=== PATIENT | male | born 1940 | race African-American/Black ===

== ENCOUNTER 2017-10-13 11:54 | Inpatient (IN) | payer MEDICARE, MEDICAID ==
[~2017-10-13] VITALS: Ht 165.1 cm; Wt 47.6 kg
[~2017-10-13 11:54] MED LIST: ASPI-1159 PO; ATOR10TA PO; COR3 PO; FURO-152 PO; GLIP5TAB12 PO; INSU100V28; INSU100V3; LISI2.5T47 PO; LORA1TAB PO; MEGE400O23 PO; NPH,100V; PHEN100C4 PO; TAMS0.4C31 PO; XALAO BOTHEYE
[2017-10-13] MEDS ORDERED: SODIUM CHLORIDE 0.9% 1,000 ML IV ONE ×2 (12:27→16:04)
[2017-10-13] MEDS ORDERED: DEXTROSE 50% WATER 50ML SYRINGE IV ONE (12:30)
[2017-10-13 13:03] LABS: CHLORIDE 100 mEq/L (98-107)
[2017-10-13 13:04] LABS: HEMATOCRIT. 34.6 % (42.0-52.0); HEMOGLOBIN. 11.7 g/dL (14.0-18.0); MEAN CORPUSCULAR HEMOGLOBIN 27.2 pg (28.0-32.0); MEAN CORPUSCULAR VOLUME 80.5 fL (80.0-94.0); MEAN PLATELET VOLUME 7.8 fl (7.4-10.4); PLATELET 168 x1000/uL (130-400); RED CELL DISTRIBUTION WIDTH 15.5 % (11.6-14.6)
[2017-10-13 13:12] LABS: CREATINE KINASE 722 IU/L (39-308)
[2017-10-13 13:30] LABS: INR 1.1; PROTHROMBIN TIME 11.7 sec (9.4-11.6)
[2017-10-13 13:51] LABS: PLATELET ESTIMATE NORMAL
[2017-10-13 15:23] LABS: CLARITY URINE CLOUDY (CLEAR); COLOR URINE YELLOW (YELLOW); KETONES URINE NEGATIVE (NEGATIVE); LEUKOCYTE ESTERASE URINE 2+ (NEGATIVE); NITRITE URINE NEGATIVE (NEGATIVE); OCCULT BLOOD URINE 2+ (NEGATIVE); PROTEIN URINE NEGATIVE (NEGATIVE); SPECIFIC GRAVITY URINE 1.015 (1.005-1.030); UROBILINOGEN URINE 0.2 E.U./dL (0.2-1.0)
[2017-10-13] MEDS ORDERED: VANCOMYCIN 1 G PREMIX 200 ML IV SCH (15:30)
[2017-10-13] MEDS ORDERED: PIPERACILLIN/TAZ 3.375G PREMIX 50 ML IV ONE (15:30)
[2017-10-13 20:00] VITALS: BP 106/62
[2017-10-13 22:30] VITALS: BP 106/62
[2017-10-13] MEDS ORDERED: DEXT 5%/0.45% NACL 1000ML 1,000 ML IV SCH (22:58)
[2017-10-13] MEDS ORDERED: IPRATROPIUM/ALBUTEROL 0.5-3(2.5)MG/3ML NEB INH PRN (23:00)
[2017-10-13] MEDS ORDERED: MAGNESIUM/ALUMINUM HYDROXIDE/SIMETHICONE 30ML UDC PO PRN (23:00)
[2017-10-13] MEDS ORDERED: ONDANSETRON HCL 4MG/2ML VIAL IV PRN (23:00)
[2017-10-13] MEDS ORDERED: ACETAMINOPHEN 325MG TABLET PO PRN (23:00)
[2017-10-13] MEDS ORDERED: DOCUSATE SODIUM 100MG CAPSULE PO PRN (23:00)
[2017-10-13] MEDS ORDERED: CLONIDINE 0.1MG TABLET PO PRN (23:00)
[2017-10-13] MEDS ORDERED: GLIP5TAB12 PO (23:57)
[2017-10-13] MEDS ORDERED: MULT-230 PO (23:57)
[2017-10-14] VITALS: BP 110/56
[2017-10-14] MEDS ORDERED: PIPERACILLIN/TAZOBACTAM 3.375GM/50ML PREMIX IV ONE
[2017-10-14] MEDS ORDERED: MAGNESIUM HYDROXIDE 400MG/5ML 30ML UDC PO PRN
[2017-10-14] MEDS ORDERED: MOM PO (00:03)
[2017-10-14] MEDS ORDERED: PIPERACILLIN/TAZOBACTAM 2.25 G in DEXTROSE 5% WATER 50 ML IV SCH (03:00)
[2017-10-14] MEDS ORDERED: PIPERACILLIN/TAZ 3.375G PREMIX 50 ML IV SCH (03:00)
[2017-10-14] MEDS: PIPERACILLIN/TAZOBACTAM 2.25 G in DEXTROSE 5% WATER 50 ML IV SCH ×4 (03:51→21:04)
[2017-10-14 04:00] VITALS: BP 122/66
[2017-10-14] MEDS: VANCOMYCIN 1500MG in DEXTROSE 5% WATER 250ML IV SCH (04:56)
[2017-10-14] MEDS: INSULIN LISPRO 100 UNITS/ML SUBCUT SCH ×4 (06:25→21:00)
[2017-10-14] MEDS: BLOOD SUGAR DIAGNOSTIC STRIP TEST SCH ×4 (06:25→21:06)
[2017-10-14] MEDS: OMEPRAZOLE 20MG CAPSULE EXTENDED RELEASE PO SCH (06:25)
[2017-10-14 06:51] LABS: BASOPHILS % 0.3 % (0.0-2.0); EOSINOPHILS % 0.3 % (0.0-5.0); HEMATOCRIT. 31.4 % (42.0-52.0); HEMOGLOBIN. 10.8 g/dL (14.0-18.0); LYMPHOCYTES % 7.9 % (20.0-50.0); MEAN CORPUSCULAR HEMOGLOBIN 28.1 pg (28.0-32.0); MEAN PLATELET VOLUME 8.3 fl (7.4-10.4); MONOCYTES % 2.1 % (2.0-8.0); NEUTROPHILS % 89.4 % (40.0-76.0); PLATELET 127 x1000/uL (130-400); RED BLOOD CELL COUNT 3.83 mill/uL (4.7-6.1); RED CELL DISTRIBUTION WIDTH 15.7 % (11.6-14.6)
[2017-10-14 07:14] LABS: CHLORIDE 105 mEq/L (98-107)
[2017-10-14 07:23] LABS: PHOSPHORUS 2.6 mg/dL (2.5-4.9)
[2017-10-14 08:00] VITALS: BP 134/67
[2017-10-14] MEDS ORDERED: [UNRECOGNIZED DRUG - OTHER] PO SCH (09:00)
[2017-10-14] MEDS ORDERED: MULTIVITAMIN WITH MINERALS PO SCH (09:00)
[2017-10-14] MEDS: TAMSULOSIN HCL 0.4MG SR CAPSULE PO SCH (10:31)
[2017-10-14] MEDS: LISINOPRIL 2.5MG TABLET PO SCH (10:31)
[2017-10-14] MEDS: MULTIVITAMINS,THER W-MINERALS TABLET PO SCH (10:32)
[2017-10-14] MEDS: CARVEDILOL 3.125 MG TABLET PO SCH ×2 (10:33→21:05)
[2017-10-14] MEDS: ASPIRIN 325MG EC TABLET PO SCH (10:33)
[2017-10-14] MEDS: MEGESTROL ACETATE 400 MG/10 ML UDC PO SCH ×2 (10:34→18:03)
[2017-10-14] MEDS: ENOXAPARIN 30MG/0.3ML SYR SUBCUT SCH (10:35)
[2017-10-14 12:00] VITALS: BP 107/62
[2017-10-14] MEDS: LEVETIRACETAM 500MG PREMIX 100 ML IV SCH (13:17)
[2017-10-14 13:21] LABS: AMMONIA < 10 uMol/L (<32)
[2017-10-14 13:36] LABS: T4 FREE 0.91 ng/dL (0.76-1.46)
[2017-10-14 15:22] LABS: FOLIC ACID (FOLATE) SERUM 9.2 ng/mL (>5.38)
[2017-10-14 16:00] VITALS: BP 96/55
[2017-10-14] MEDS: DEXTROSE 50% WATER 50ML SYRINGE IV PRN (17:58)
[2017-10-14 20:00] VITALS: BP 121/76
[2017-10-14] MEDS: ATORVASTATIN CALCIUM 40MG TABLET PO SCH (21:05)
[2017-10-14] MEDS: LATANOPROST 0.005% OPHTH DROPS 2.5ML BOTHEYE SCH (21:07)
[2017-10-15] VITALS: BP 126/71
[2017-10-15] MEDS: LEVETIRACETAM 500MG PREMIX 100 ML IV SCH ×2 (01:24→12:58)
[2017-10-15] MEDS: PIPERACILLIN/TAZOBACTAM 2.25 G in DEXTROSE 5% WATER 50 ML IV SCH ×4 (03:01→21:38)
[2017-10-15 04:00] VITALS: BP 121/83
[2017-10-15] MEDS: VANCOMYCIN 1500MG in DEXTROSE 5% WATER 250ML IV SCH (05:15)
[2017-10-15] MEDS: BLOOD SUGAR DIAGNOSTIC STRIP TEST SCH ×4 (06:02→21:02)
[2017-10-15] MEDS: OMEPRAZOLE 20MG CAPSULE EXTENDED RELEASE PO SCH (06:02)
[2017-10-15] MEDS: INSULIN LISPRO 100 UNITS/ML SUBCUT SCH ×4 (06:02→21:00)
[2017-10-15 06:43] LABS: BASOPHILS % 0.2 % (0.0-2.0); EOSINOPHILS % 0.2 % (0.0-5.0); HEMATOCRIT. 33.5 % (42.0-52.0); HEMOGLOBIN. 11.5 g/dL (14.0-18.0); LYMPHOCYTES % 7.3 % (20.0-50.0); MEAN CORPUSCULAR HEMOGLOBIN 27.8 pg (28.0-32.0); MONOCYTES % 2.7 % (2.0-8.0); NEUTROPHILS % 89.6 % (40.0-76.0); PLATELET 128 x1000/uL (130-400); RED BLOOD CELL COUNT 4.14 mill/uL (4.7-6.1); RED CELL DISTRIBUTION WIDTH 15.4 % (11.6-14.6)
[2017-10-15 08:00] VITALS: BP 112/86
[2017-10-15 08:17] LABS: CHLORIDE 103 mEq/L (98-107)
[2017-10-15] MEDS: MEGESTROL ACETATE 400 MG/10 ML UDC PO SCH ×2 (09:14→17:01)
[2017-10-15] MEDS: CARVEDILOL 3.125 MG TABLET PO SCH ×2 (09:15→20:50)
[2017-10-15] MEDS: MULTIVITAMINS,THER W-MINERALS TABLET PO SCH (09:15)
[2017-10-15] MEDS: TAMSULOSIN HCL 0.4MG SR CAPSULE PO SCH (09:15)
[2017-10-15] MEDS: ASPIRIN 325MG EC TABLET PO SCH (09:15)
[2017-10-15] MEDS: LISINOPRIL 2.5MG TABLET PO SCH (09:16)
[2017-10-15] MEDS: ENOXAPARIN 30MG/0.3ML SYR SUBCUT SCH (09:16)
[2017-10-15 12:00] VITALS: BP 97/58
[2017-10-15 16:00] VITALS: BP 117/69
[2017-10-15 20:00] VITALS: BP 124/78
[2017-10-15] MEDS: ATORVASTATIN CALCIUM 40MG TABLET PO SCH (20:50)
[2017-10-15] MEDS: LATANOPROST 0.005% OPHTH DROPS 2.5ML BOTHEYE SCH (20:50)
[2017-10-15 22:59] LABS: HEPATITIS B SURFACE ANTIGEN NEGATIVE
[2017-10-15 23:28] LABS: HEPATITIS B CORE AB IGM NEGATIVE
[2017-10-15 23:29] LABS: HEPATITIS A AB IGM NEGATIVE (NEGATIVE)
[2017-10-16] VITALS: BP 121/74
[2017-10-16] MEDS: LEVETIRACETAM 500MG PREMIX 100 ML IV SCH ×2 (01:53→12:48)
[2017-10-16] MEDS: PIPERACILLIN/TAZOBACTAM 2.25 G in DEXTROSE 5% WATER 50 ML IV SCH ×2 (03:21→09:58)
[2017-10-16 04:00] VITALS: BP 121/61
[2017-10-16] MEDS ORDERED: VANCOMYCIN 750 MG PREMIX 150 ML IV SCH (05:00)
[2017-10-16 06:06] LABS: BASOPHILS % 0.1 % (0.0-2.0); EOSINOPHILS % 0.2 % (0.0-5.0); HEMATOCRIT. 31.8 % (42.0-52.0); HEMOGLOBIN. 10.9 g/dL (14.0-18.0); LYMPHOCYTES % 8.6 % (20.0-50.0); MEAN CORPUSCULAR VOLUME 81.6 fL (80.0-94.0); MEAN PLATELET VOLUME 8.2 fl (7.4-10.4); NEUTROPHILS % 88.1 % (40.0-76.0); PLATELET 126 x1000/uL (130-400); RED BLOOD CELL COUNT 3.89 mill/uL (4.7-6.1); RED CELL DISTRIBUTION WIDTH 15.4 % (11.6-14.6)
[2017-10-16] MEDS: OMEPRAZOLE 20MG CAPSULE EXTENDED RELEASE PO SCH (06:35)
[2017-10-16] MEDS: DEXTROSE 50% WATER 50ML SYRINGE IV PRN (07:03)
[2017-10-16] MEDS: BLOOD SUGAR DIAGNOSTIC STRIP TEST SCH ×4 (07:10→21:00)
[2017-10-16] MEDS: INSULIN LISPRO 100 UNITS/ML SUBCUT SCH ×2 (07:11→11:56)
[2017-10-16 07:25] LABS: CHLORIDE 104 mEq/L (98-107)
[2017-10-16 08:00] VITALS: BP 124/76
[2017-10-16] MEDS: ENOXAPARIN 30MG/0.3ML SYR SUBCUT SCH (09:58)
[2017-10-16] MEDS: LISINOPRIL 2.5MG TABLET PO SCH (09:59)
[2017-10-16] MEDS: CARVEDILOL 3.125 MG TABLET PO SCH ×2 (09:59→21:28)
[2017-10-16] MEDS: MULTIVITAMINS,THER W-MINERALS TABLET PO SCH (09:59)
[2017-10-16] MEDS: MEGESTROL ACETATE 400 MG/10 ML UDC PO SCH ×2 (09:59→18:02)
[2017-10-16] MEDS: ASPIRIN 325MG EC TABLET PO SCH (09:59)
[2017-10-16] MEDS: TAMSULOSIN HCL 0.4MG SR CAPSULE PO SCH (10:00)
[2017-10-16 12:00] VITALS: BP 120/70
[2017-10-16 16:00] VITALS: BP 95/53
[2017-10-16] MEDS ORDERED: LEVOFLOXACIN 500MG PREMIX 100 ML IV SCH (16:00)
[2017-10-16 20:00] VITALS: BP 116/64
[2017-10-16] MEDS: ATORVASTATIN CALCIUM 40MG TABLET PO SCH (21:28)
[2017-10-16] MEDS: LATANOPROST 0.005% OPHTH DROPS 2.5ML BOTHEYE SCH (22:06)
[2017-10-16] MEDS: LEVOFLOXACIN 500MG PREMIX 100 ML IV SCH (22:08)
[2017-10-17] VITALS: BP 101/70
[2017-10-17] MEDS: LEVETIRACETAM 500MG PREMIX 100 ML IV SCH ×2 (01:55→13:53)
[2017-10-17 04:00] VITALS: BP 119/68
[2017-10-17] MEDS: FAMOTIDINE 20MG TABLET PO SCH (05:11)
[2017-10-17] MEDS: BLOOD SUGAR DIAGNOSTIC STRIP TEST SCH ×4 (05:17→20:20)
[2017-10-17 06:12] LABS: HEMATOCRIT. 29.9 % (42.0-52.0); HEMOGLOBIN. 10.3 g/dL (14.0-18.0); MEAN CORPUSCULAR HEMOGLOBIN 28.1 pg (28.0-32.0); MEAN CORPUSCULAR VOLUME 81.6 fL (80.0-94.0); MEAN PLATELET VOLUME 7.9 fl (7.4-10.4); PLATELET 133 x1000/uL (130-400); RED BLOOD CELL COUNT 3.66 mill/uL (4.7-6.1); RED CELL DISTRIBUTION WIDTH 15.4 % (11.6-14.6)
[2017-10-17 08:00] VITALS: BP 137/73
[2017-10-17] MEDS: MULTIVITAMINS,THER W-MINERALS TABLET PO SCH (09:05)
[2017-10-17] MEDS: ASPIRIN 325MG EC TABLET PO SCH (09:05)
[2017-10-17] MEDS: LISINOPRIL 2.5MG TABLET PO SCH (09:05)
[2017-10-17] MEDS: CARVEDILOL 3.125 MG TABLET PO SCH ×2 (09:06→20:19)
[2017-10-17] MEDS: TAMSULOSIN HCL 0.4MG SR CAPSULE PO SCH (09:06)
[2017-10-17] MEDS: MEGESTROL ACETATE 400 MG/10 ML UDC PO SCH ×2 (09:06→17:27)
[2017-10-17] MEDS: ENOXAPARIN 30MG/0.3ML SYR SUBCUT SCH (09:07)
[2017-10-17 12:00] VITALS: BP 116/64
[2017-10-17 13:28] LABS: PLATELET ESTIMATE NORMAL
[2017-10-17] MEDS ORDERED: LACTULOSE 20G/30ML UDC PO NR (14:30)
[2017-10-17 16:00] VITALS: BP 111/62
[2017-10-17 20:00] VITALS: BP 130/74
[2017-10-17] MEDS: ATORVASTATIN CALCIUM 40MG TABLET PO SCH (20:18)
[2017-10-17] MEDS: LATANOPROST 0.005% OPHTH DROPS 2.5ML BOTHEYE SCH (20:19)
[2017-10-17] MEDS: LEVOFLOXACIN 500MG PREMIX 100 ML IV SCH (20:19)
[2017-10-18] VITALS: BP 128/77
[2017-10-18 04:00] VITALS: BP 128/77
[2017-10-18] MEDS: BLOOD SUGAR DIAGNOSTIC STRIP TEST SCH ×2 (05:57→11:45)
[2017-10-18] MEDS: FAMOTIDINE 20MG TABLET PO SCH (05:57)
[2017-10-18 07:15] VITALS: BP 154/95
[2017-10-18] MEDS: MEGESTROL ACETATE 400 MG/10 ML UDC PO SCH (09:29)
[2017-10-18] MEDS: ASPIRIN 325MG EC TABLET PO SCH (09:29)
[2017-10-18] MEDS: MULTIVITAMINS,THER W-MINERALS TABLET PO SCH (09:29)
[2017-10-18] MEDS: TAMSULOSIN HCL 0.4MG SR CAPSULE PO SCH (09:30)
[2017-10-18] MEDS: CARVEDILOL 3.125 MG TABLET PO SCH (09:31)
[2017-10-18] MEDS: ENOXAPARIN 30MG/0.3ML SYR SUBCUT SCH (09:32)
[2017-10-18] MEDS: LISINOPRIL 2.5MG TABLET PO SCH (09:32)
[2017-10-18 11:40] VITALS: BP 121/66
[2017-10-18] MEDS: LEVETIRACETAM 500MG PREMIX 100 ML IV SCH ×2 (14:04)
[2017-10-18 14:19] VITALS: BP 121/66
[2017-10-18 15:45] VITALS: BP 104/82
[2017-10-18] MEDS ORDERED: LEVOFLOXACIN 250MG PREMIX 50 ML IV SCH (20:00)
== END 2017-10-18 16:50 | DRG 871 ==
LOC: ER 12:05 → 5WST 15:38 → EDBEDREQSVC 15:41 → EDBEDREQTM 15:41 → EDBEDREQ 15:41 → ENRESERV 19:25
PROVIDERS: ADMIT Family Medicine Adult Medicine; ATTEND Family Medicine Adult Medicine
DX: A41.9 Sepsis, unspecified organism (principal); G92 Toxic encephalopathy; N17.9 Acute kidney failure, unspecified; L89.150 Pressure ulcer of sacral region, unstageable; D69.6 Thrombocytopenia, unspecified; E11.22 Type 2 diabetes mellitus with diabetic chronic kidney disease; E44.1 Mild protein-calorie malnutrition; I69.354 Hemiplegia and hemiparesis following cerebral infarction affecting left non-dominant side; N39.0 Urinary tract infection, site not specified; Z68.1 Body mass index [BMI] 19.9 or less, adult; N18.9 Chronic kidney disease, unspecified; B96.5 Pseudomonas (aeruginosa) (mallei) (pseudomallei) as the cause of diseases classified elsewhere; D64.9 Anemia, unspecified; E78.00 Pure hypercholesterolemia, unspecified; E78.5 Hyperlipidemia, unspecified; F03.90 Unspecified dementia, unspecified severity, without behavioral disturbance, psychotic disturbance, mood disturbance, and anxiety; G40.909 Epilepsy, unspecified, not intractable, without status epilepticus; I12.9 Hypertensive chronic kidney disease with stage 1 through stage 4 chronic kidney disease, or unspecified chronic kidney disease; J44.9 Chronic obstructive pulmonary disease, unspecified; M48.02 Spinal stenosis, cervical region; Z85.46 Personal history of malignant neoplasm of prostate; Z90.79 Acquired absence of other genital organ(s); Z98.1 Arthrodesis status; Z79.82 Long term (current) use of aspirin; Z79.4 Long term (current) use of insulin; Z79.899 Other long term (current) drug therapy; Z90.49 Acquired absence of other specified parts of digestive tract
CPT/HCPCS: 36415; 51702; 70450; 70551; 71045; 80048; 80053; 80076; 80202; 81003; 82140; 82550; 82607; 82746; 82962; 83036; 83605; 83735; 83880; 84100; 84439; 84443; 84481; 84484; 85025; 85610; 86705; 86709; 86803; 86850; 86900; 87040; 87077; 87086; 87186; 87340; 92610; 93005; 93970; 96361; 96365; 96375; 99285; J1650; J1815; J1953; J1956; J2543; J3370; J3490; J7030; J7040; J7050; J7060; A4315

== ENCOUNTER 2017-10-19 19:03 | Inpatient (IN) | payer MEDICARE, MEDICAID ==
[~2017-10-19] VITALS: Ht 167.6 cm; Wt 49.2 kg
[~2017-10-19 19:03] MED LIST changes: -INSU100V28; -INSU100V3; +MOM PO; +MULT-230 PO; -NPH,100V; -PHEN100C4 PO
[2017-10-19] MEDS ORDERED: SODIUM CHLORIDE 0.9% 1,000 ML IV ONE (19:39)
[2017-10-19 20:31] LABS: BASOPHILS % 0.5 % (0.0-2.0); EOSINOPHILS % 2.5 % (0.0-5.0); HEMATOCRIT. 26.2 % (42.0-52.0); LYMPHOCYTES % 15.6 % (20.0-50.0); MEAN CORPUSCULAR HEMOGLOBIN 27.7 pg (28.0-32.0); MEAN CORPUSCULAR VOLUME 80.8 fL (80.0-94.0); MEAN PLATELET VOLUME 6.9 fl (7.4-10.4); MONOCYTES % 4.5 % (2.0-8.0); NEUTROPHILS % 76.9 % (40.0-76.0); PLATELET 180 x1000/uL (130-400); RED BLOOD CELL COUNT 3.25 mill/uL (4.7-6.1); RED CELL DISTRIBUTION WIDTH 15.3 % (11.6-14.6)
[2017-10-19 20:35] LABS: CHLORIDE 108 mEq/L (98-107)
[2017-10-19 20:36] LABS: PROTHROMBIN TIME 10.8 sec (9.4-11.6)
[2017-10-19 21:34] LABS: KETONES URINE 1+ (NEGATIVE); LEUKOCYTE ESTERASE URINE 3+ (NEGATIVE); NITRITE URINE POSITIVE (NEGATIVE); OCCULT BLOOD URINE 3+ (NEGATIVE); PROTEIN URINE 2+ (NEGATIVE); SPECIFIC GRAVITY URINE 1.011 (1.005-1.030); UROBILINOGEN URINE 0.2 E.U./dL (0.2-1.0)
[2017-10-19 21:39] LABS: CLARITY URINE BLOODY (CLEAR); COLOR URINE RED (YELLOW)
[2017-10-19] MEDS ORDERED: CEFTRIAXONE 2 G PREMIX 50 ML IV NR (22:30)
[2017-10-19] MEDS ORDERED: HYDROCODONE/ACETAMINOPHEN 5/325MG TABLET PO PRN (23:15)
[2017-10-19] MEDS ORDERED: LORAZEPAM 0.5MG TABLET PO PRN (23:15)
[2017-10-19] MEDS ORDERED: ONDANSETRON HCL 4MG/2ML VIAL IV PRN (23:15)
[2017-10-19] MEDS ORDERED: DIPHENHYDRAMINE 50MG/ML VIAL IV PRN (23:15)
[2017-10-19] MEDS ORDERED: ACETAMINOPHEN 325MG TABLET PO PRN (23:15)
[2017-10-19] MEDS ORDERED: IPRATROPIUM/ALBUTEROL 0.5-3(2.5)MG/3ML NEB INH PRN (23:15)
[2017-10-19] MEDS ORDERED: DOCUSATE SODIUM 100MG CAPSULE PO PRN (23:15)
[2017-10-19] MEDS ORDERED: GUAIFENESIN 200MG/10ML SUGAR FREE UDC PO PRN (23:15)
[2017-10-19] MEDS ORDERED: HYDROCODONE/ACETAMINOPHEN 10/325MG TABLET PO PRN (23:15)
[2017-10-20] VITALS (7 sets, daily range): BP systolic 102–161; BP diastolic 62–82
[2017-10-20] MEDS ORDERED: AZITHROMYCIN 500 MG in DEXT 5% WATER 250 ML IV SCH ×2
[2017-10-20] MEDS: DEXT 5%/0.45% NACL 1000ML 1,000 ML IV SCH ×2 (01:15→18:09)
[2017-10-20 07:09] LABS: BASOPHILS % 0.3 % (0.0-2.0); HEMATOCRIT. 26.7 % (42.0-52.0); HEMOGLOBIN. 9.3 g/dL (14.0-18.0); LYMPHOCYTES % 13.1 % (20.0-50.0); MEAN CORPUSCULAR VOLUME 80.1 fL (80.0-94.0); MEAN PLATELET VOLUME 7.2 fl (7.4-10.4); MONOCYTES % 3.7 % (2.0-8.0); NEUTROPHILS % 81.9 % (40.0-76.0); PLATELET 178 x1000/uL (130-400); RED BLOOD CELL COUNT 3.33 mill/uL (4.7-6.1); RED CELL DISTRIBUTION WIDTH 15.4 % (11.6-14.6)
[2017-10-20 07:48] LABS: CHLORIDE 108 mEq/L (98-107)
[2017-10-20 07:59] LABS: PHOSPHORUS 2.8 mg/dL (2.5-4.9)
[2017-10-20] MEDS: CLONIDINE 0.1MG TABLET PO PRN (09:21)
[2017-10-20] MEDS ORDERED: CEFTRIAXONE 1 G PREMIX 50 ML IV SCH (10:00)
[2017-10-20] MEDS ORDERED: LEVOFLOXACIN 500MG PREMIX 100 ML IV NR (18:00)
[2017-10-20] MEDS: METRONIDAZOLE 500 MG PREMIX 100 ML IV SCH (22:48)
[2017-10-21] VITALS: BP 170/100
[2017-10-21] MEDS: CEFTRIAXONE 1 G PREMIX 50 ML IV SCH ×2 (00:04→23:00)
[2017-10-21 04:00] VITALS: BP 163/87
[2017-10-21] MEDS: METRONIDAZOLE 500 MG PREMIX 100 ML IV SCH ×3 (06:18→21:05)
[2017-10-21 06:42] LABS: BASOPHILS % 0.2 % (0.0-2.0); EOSINOPHILS % 0.4 % (0.0-5.0); HEMATOCRIT. 30.3 % (42.0-52.0); HEMOGLOBIN. 10.2 g/dL (14.0-18.0); LYMPHOCYTES % 9.1 % (20.0-50.0); MEAN CORPUSCULAR HEMOGLOBIN 27.2 pg (28.0-32.0); MEAN CORPUSCULAR VOLUME 80.6 fL (80.0-94.0); MEAN PLATELET VOLUME 6.9 fl (7.4-10.4); MONOCYTES % 3.3 % (2.0-8.0); PLATELET 231 x1000/uL (130-400); RED BLOOD CELL COUNT 3.75 mill/uL (4.7-6.1); RED CELL DISTRIBUTION WIDTH 14.9 % (11.6-14.6)
[2017-10-21 08:00] VITALS: BP 158/96
[2017-10-21 08:02] LABS: CHLORIDE 107 mEq/L (98-107)
[2017-10-21] MEDS: CLONIDINE 0.1MG TABLET PO PRN (09:22)
[2017-10-21 12:00] VITALS: BP 166/64
[2017-10-21] MEDS ORDERED: FUROSEMIDE 40MG/4ML VIAL IVP NR (15:30)
[2017-10-21] MEDS: TAMSULOSIN HCL 0.4MG SR CAPSULE PO SCH (15:56)
[2017-10-21] MEDS: LISINOPRIL 2.5MG TABLET PO SCH (15:56)
[2017-10-21 16:00] VITALS: BP 138/78
[2017-10-21] MEDS ORDERED: MAGNESIUM 1 G PREMIX 100 ML IV NR (17:00)
[2017-10-21] MEDS: MULTIVITAMINS,THER W-MINERALS TABLET PO SCH (17:23)
[2017-10-21] MEDS: CARVEDILOL 3.125 MG TABLET PO SCH (17:24)
[2017-10-21 20:00] VITALS: BP 185/87
[2017-10-21] MEDS ORDERED: ATORVASTATIN CALCIUM 10MG TABLET PO SCH (21:00)
[2017-10-21] MEDS: LATANOPROST 0.005% OPHTH DROPS 2.5ML BOTHEYE SCH (21:05)
[2017-10-22] VITALS: BP 116/83
[2017-10-22 04:00] VITALS: BP 121/79
[2017-10-22] MEDS: METRONIDAZOLE 500 MG PREMIX 100 ML IV SCH (07:12)
[2017-10-22 07:38] LABS: HEMATOCRIT. 26.5 % (42.0-52.0); HEMOGLOBIN. 9.2 g/dL (14.0-18.0); MEAN CORPUSCULAR HEMOGLOBIN 27.6 pg (28.0-32.0); MEAN CORPUSCULAR VOLUME 79.5 fL (80.0-94.0); PLATELET 236 x1000/uL (130-400); RED BLOOD CELL COUNT 3.33 mill/uL (4.7-6.1); RED CELL DISTRIBUTION WIDTH 15.1 % (11.6-14.6)
[2017-10-22 08:00] VITALS: BP 95/61
[2017-10-22] MEDS: LISINOPRIL 2.5MG TABLET PO SCH (08:27)
[2017-10-22] MEDS: CARVEDILOL 3.125 MG TABLET PO SCH ×2 (08:27→21:07)
[2017-10-22] MEDS: TAMSULOSIN HCL 0.4MG SR CAPSULE PO SCH (08:28)
[2017-10-22 08:29] LABS: CHLORIDE 106 mEq/L (98-107)
[2017-10-22] MEDS: FUROSEMIDE 20MG TABLET PO SCH (08:39)
[2017-10-22] MEDS: MULTIVITAMINS,THER W-MINERALS TABLET PO SCH (09:03)
[2017-10-22 10:17] LABS: PLATELET ESTIMATE NORMAL
[2017-10-22 12:00] VITALS: BP 96/68
[2017-10-22] MEDS: METRONIDAZOLE 500MG TABLET PO SCH ×2 (15:50→21:07)
[2017-10-22 16:00] VITALS: BP 152/107
[2017-10-22 20:00] VITALS: BP 133/72
[2017-10-22] MEDS: ATORVASTATIN CALCIUM 40MG TABLET PO SCH (21:07)
[2017-10-22] MEDS: LATANOPROST 0.005% OPHTH DROPS 2.5ML BOTHEYE SCH (21:11)
[2017-10-22] MEDS: CEFTRIAXONE 1 G PREMIX 50 ML IV SCH (22:02)
[2017-10-23] VITALS: BP 142/82
[2017-10-23 04:00] VITALS: BP 117/84
[2017-10-23] MEDS: METRONIDAZOLE 500MG TABLET PO SCH ×3 (05:37→21:34)
[2017-10-23 07:30] LABS: BASOPHILS % 0.2 % (0.0-2.0); EOSINOPHILS % 0.2 % (0.0-5.0); HEMATOCRIT. 24.4 % (42.0-52.0); HEMOGLOBIN. 8.5 g/dL (14.0-18.0); LYMPHOCYTES % 7.9 % (20.0-50.0); MEAN CORPUSCULAR HEMOGLOBIN 27.6 pg (28.0-32.0); MEAN CORPUSCULAR VOLUME 79.3 fL (80.0-94.0); MONOCYTES % 2.8 % (2.0-8.0); NEUTROPHILS % 88.9 % (40.0-76.0); PLATELET 245 x1000/uL (130-400); RED BLOOD CELL COUNT 3.08 mill/uL (4.7-6.1); RED CELL DISTRIBUTION WIDTH 15.3 % (11.6-14.6)
[2017-10-23 07:31] LABS: CHLORIDE 108 mEq/L (98-107)
[2017-10-23 08:00] VITALS: BP 136/73
[2017-10-23] MEDS: MULTIVITAMINS,THER W-MINERALS TABLET PO SCH (09:22)
[2017-10-23] MEDS: FUROSEMIDE 20MG TABLET PO SCH (09:22)
[2017-10-23] MEDS: TAMSULOSIN HCL 0.4MG SR CAPSULE PO SCH (09:22)
[2017-10-23] MEDS: LISINOPRIL 2.5MG TABLET PO SCH (09:22)
[2017-10-23] MEDS: CARVEDILOL 3.125 MG TABLET PO SCH ×2 (09:23→21:35)
[2017-10-23 12:00] VITALS: BP 147/80
[2017-10-23 16:00] VITALS: BP 118/76
[2017-10-23 20:00] VITALS: BP 147/73
[2017-10-23] MEDS: ATORVASTATIN CALCIUM 40MG TABLET PO SCH (21:34)
[2017-10-23] MEDS: LATANOPROST 0.005% OPHTH DROPS 2.5ML BOTHEYE SCH (21:35)
[2017-10-23] MEDS: CEFTRIAXONE 1 G PREMIX 50 ML IV SCH (22:19)
[2017-10-24] VITALS (8 sets, daily range): BP systolic 111–170; BP diastolic 54–83
[2017-10-24] MEDS: METRONIDAZOLE 500MG TABLET PO SCH ×3 (05:57→21:38)
[2017-10-24 06:56] LABS: BASOPHILS % 0.6 % (0.0-2.0); EOSINOPHILS % 1.2 % (0.0-5.0); HEMATOCRIT. 26.2 % (42.0-52.0); HEMOGLOBIN. 9.1 g/dL (14.0-18.0); LYMPHOCYTES % 17.1 % (20.0-50.0); MEAN CORPUSCULAR HEMOGLOBIN 27.4 pg (28.0-32.0); MEAN CORPUSCULAR VOLUME 78.9 fL (80.0-94.0); MONOCYTES % 4.4 % (2.0-8.0); NEUTROPHILS % 76.7 % (40.0-76.0); PLATELET 304 x1000/uL (130-400); RED BLOOD CELL COUNT 3.32 mill/uL (4.7-6.1); RED CELL DISTRIBUTION WIDTH 15.2 % (11.6-14.6)
[2017-10-24 07:38] LABS: CHLORIDE 106 mEq/L (98-107)
[2017-10-24] MEDS: MULTIVITAMINS,THER W-MINERALS TABLET PO SCH (08:03)
[2017-10-24] MEDS: CARVEDILOL 3.125 MG TABLET PO SCH ×2 (08:03→21:39)
[2017-10-24] MEDS: FUROSEMIDE 20MG TABLET PO SCH (08:03)
[2017-10-24] MEDS: LISINOPRIL 2.5MG TABLET PO SCH (08:03)
[2017-10-24] MEDS: TAMSULOSIN HCL 0.4MG SR CAPSULE PO SCH (08:04)
[2017-10-24] MEDS: ATORVASTATIN CALCIUM 40MG TABLET PO SCH (21:39)
[2017-10-24] MEDS: LATANOPROST 0.005% OPHTH DROPS 2.5ML BOTHEYE SCH (21:39)
[2017-10-24] MEDS: CEFTRIAXONE 1 G PREMIX 50 ML IV SCH (23:49)
[2017-10-25] VITALS: BP 158/85
[2017-10-25 04:00] VITALS: BP 143/87
[2017-10-25] MEDS: METRONIDAZOLE 500MG TABLET PO SCH ×2 (05:05→13:48)
[2017-10-25 08:00] VITALS: BP 155/84
[2017-10-25] MEDS: FUROSEMIDE 20MG TABLET PO SCH (09:29)
[2017-10-25] MEDS: TAMSULOSIN HCL 0.4MG SR CAPSULE PO SCH (09:29)
[2017-10-25] MEDS: MULTIVITAMINS,THER W-MINERALS TABLET PO SCH (09:29)
[2017-10-25] MEDS: LISINOPRIL 2.5MG TABLET PO SCH (09:30)
[2017-10-25] MEDS: CARVEDILOL 3.125 MG TABLET PO SCH (10:12)
[2017-10-25 12:00] VITALS: BP 150/83
== END 2017-10-25 15:52 | DRG 853 ==
LOC: ER 20:59 → 5WST 22:54 → EDBEDREQ 22:54 → EDBEDREQSVC 22:54 → EDBEDREQTM 22:54 → ENRESERV 23:35
PROVIDERS: ADMIT Family Medicine Adult Medicine; ATTEND Family Medicine Adult Medicine
PROC: 0JB70ZZ Excision of Back Subcutaneous Tissue and Fascia, Open Approach (ICD-10-PCS; principal; 2017-10-20)
DX: A41.9 Sepsis, unspecified organism (principal); J96.00 Acute respiratory failure, unspecified whether with hypoxia or hypercapnia; E43 Unspecified severe protein-calorie malnutrition; L89.153 Pressure ulcer of sacral region, stage 3; I13.0 Hypertensive heart and chronic kidney disease with heart failure and stage 1 through stage 4 chronic kidney disease, or unspecified chronic kidney disease; J18.1 Lobar pneumonia, unspecified organism; E11.22 Type 2 diabetes mellitus with diabetic chronic kidney disease; I50.9 Heart failure, unspecified; J44.0 Chronic obstructive pulmonary disease with (acute) lower respiratory infection; R18.8 Other ascites; N39.0 Urinary tract infection, site not specified; Z68.1 Body mass index [BMI] 19.9 or less, adult; S37.30XA Unspecified injury of urethra, initial encounter; D72.819 Decreased white blood cell count, unspecified; E78.5 Hyperlipidemia, unspecified; K56.41 Fecal impaction; N32.89 Other specified disorders of bladder; D64.9 Anemia, unspecified; R74.0 Nonspecific elevation of levels of transaminase and lactic acid dehydrogenase [LDH]; N18.9 Chronic kidney disease, unspecified; F03.90 Unspecified dementia, unspecified severity, without behavioral disturbance, psychotic disturbance, mood disturbance, and anxiety; G40.909 Epilepsy, unspecified, not intractable, without status epilepticus; R31.0 Gross hematuria; X58.XXXA Exposure to other specified factors, initial encounter; Y93.89 Activity, other specified; Y92.89 Other specified places as the place of occurrence of the external cause; Y99.8 Other external cause status; Z85.46 Personal history of malignant neoplasm of prostate; Z90.79 Acquired absence of other genital organ(s); Z86.73 Personal history of transient ischemic attack (TIA), and cerebral infarction without residual deficits; Z95.0 Presence of cardiac pacemaker; Z79.899 Other long term (current) drug therapy; Z79.82 Long term (current) use of aspirin; Z98.1 Arthrodesis status; Z87.440 Personal history of urinary (tract) infections
CPT/HCPCS: 36415; 51702; 71045; 74176; 80048; 80053; 81003; 82962; 83605; 83735; 84100; 84145; 84443; 85025; 85610; 87040; 87086; 93005; 96374; 99285; C1893; J0696; J1940; J1956; J3475; J3490; J7030; J7040; J7050; A4315

== ENCOUNTER 2018-01-26 14:29 | Inpatient (IN) | payer MEDICARE, MEDICAID ==
[~2018-01-26] VITALS: Ht 172.7 cm; Wt 47.6 kg
[2018-01-26] MEDS ORDERED: SODIUM CHLORIDE 0.9% 1000ML BAG (SEPSIS BOLUS) IV ONE (15:00)
[2018-01-26 16:07] LABS: CHLORIDE 117 mEq/L (98-107)
[2018-01-26 16:08] LABS: HEMATOCRIT. 40.5 % (42.0-52.0); INR 1.1; MEAN CORPUSCULAR HEMOGLOBIN 27.6 pg (28.0-32.0); MEAN CORPUSCULAR VOLUME 85.9 fL (80.0-94.0); MEAN PLATELET VOLUME 9.5 fl (7.4-10.4); PLATELET 155 x1000/uL (130-400); PROTHROMBIN TIME 10.9 sec (9.1-11.1); RED BLOOD CELL COUNT 4.71 mill/uL (4.7-6.1); RED CELL DISTRIBUTION WIDTH 15.5 % (11.6-14.6)
[2018-01-26 16:26] LABS: PLATELET ESTIMATE NORMAL
[2018-01-26] MEDS ORDERED: INSULIN REGULAR (DRIP) 100 UNITS in SODIUM CHLORIDE 0.9% 100 ML IV ONE ×2 (17:42→18:00)
[2018-01-26 18:17] LABS: PHOSPHORUS 4.2 mg/dL (2.5-4.9)
[2018-01-26] MEDS ORDERED: SODIUM CHL 0.45% + KCL 20MEQ/L 1,000 ML IV SCH ×2 (20:45)
[2018-01-26 21:00] LABS: CLARITY URINE CLOUDY (CLEAR); COLOR URINE YELLOW (YELLOW); KETONES URINE NEGATIVE (NEGATIVE); LEUKOCYTE ESTERASE URINE 2+ (NEGATIVE); NITRITE URINE NEGATIVE (NEGATIVE); OCCULT BLOOD URINE 3+ (NEGATIVE); PROTEIN URINE NEGATIVE (NEGATIVE); SPECIFIC GRAVITY URINE 1.023 (1.005-1.030); UROBILINOGEN URINE 0.2 E.U./dL (0.2-1.0)
[2018-01-26] MEDS ORDERED: ONDANSETRON HCL 4MG/2ML VIAL IV PRN (23:15)
[2018-01-26 23:24] VITALS: BP 104/77
[2018-01-26] MEDS ORDERED: BLOOD SUGAR DIAGNOSTIC STRIP TEST SCH (23:30)
[2018-01-26] MEDS ORDERED: DEXTROSE 50% WATER 50ML SYRINGE IV PRN ×2 (23:30)
[2018-01-26 23:39] VITALS: BP 104/77
[2018-01-27] VITALS (41 sets, daily range): BP systolic 84–147; BP diastolic 52–87
[2018-01-27 00:12] LABS: BASOPHILS % 0.3 % (0.0-2.0); HEMATOCRIT. 37.5 % (42.0-52.0); LYMPHOCYTES % 10.9 % (20.0-50.0); MEAN CORPUSCULAR HEMOGLOBIN 27.5 pg (28.0-32.0); MEAN CORPUSCULAR VOLUME 85.5 fL (80.0-94.0); MEAN PLATELET VOLUME 9.3 fl (7.4-10.4); MONOCYTES % 2.1 % (2.0-8.0); NEUTROPHILS % 85.7 % (40.0-76.0); PLATELET 138 x1000/uL (130-400); RED BLOOD CELL COUNT 4.39 mill/uL (4.7-6.1); RED CELL DISTRIBUTION WIDTH 15.2 % (11.6-14.6)
[2018-01-27] MEDS ORDERED: LISI2.5T47 MT (00:58)
[2018-01-27] MEDS ORDERED: MEGE40TA27 GT (00:58)
[2018-01-27] MEDS ORDERED: GLIP5TAB12 MT (00:58)
[2018-01-27] MEDS ORDERED: LORA-250 MT (00:58)
[2018-01-27] MEDS ORDERED: ATOR80TA MT (00:58)
[2018-01-27] MEDS ORDERED: FURO-152 PO (00:58)
[2018-01-27] MEDS ORDERED: ASPI-1159 PO (00:58)
[2018-01-27] MEDS ORDERED: TAMS-11 PO (00:58)
[2018-01-27] MEDS ORDERED: MULT-379 MT (00:58)
[2018-01-27] MEDS ORDERED: MOM MT (00:58)
[2018-01-27] MEDS ORDERED: XALAO EACHEYE (00:58)
[2018-01-27] MEDS ORDERED: COR3 PO (00:58)
[2018-01-27] MEDS ORDERED: SODIUM CHL 0.9% + KCL 20MEQ/L 1,000 ML IV SCH (01:00)
[2018-01-27] MEDS: INSULIN REGULAR (DRIP) 100 UNITS in SODIUM CHLORIDE 0.9% 100 ML IV SCH ×2 (01:02→05:57)
[2018-01-27] MEDS: BLOOD SUGAR DIAGNOSTIC STRIP TEST SCH ×8 (03:00→21:00)
[2018-01-27] MEDS ORDERED: DEXTROSE 50% WATER 50ML SYRINGE IV PRN (06:45)
[2018-01-27] MEDS: INSULIN LISPRO 100 UNITS/ML SUBCUT SCH ×4 (07:45→22:27)
[2018-01-27] MEDS ORDERED: DEXT 5%/0.45% NACL KCL 20MEQ/L 1,000 ML IV SCH (08:00)
[2018-01-27] MEDS: PANTOPRAZOLE SODIUM 40 MG/VIAL IV SCH (08:37)
[2018-01-27] MEDS ORDERED: POTASSIUM CHLORIDE INJ 40 MEQ in DEXT 5% WATER 250 ML IV NR (09:00)
[2018-01-27] MEDS ORDERED: DEXTROSE 5% WATER 1,000 ML IV SCH (09:00)
[2018-01-27] MEDS ORDERED: ENOXAPARIN 30MG/0.3ML SYR SUBCUT SCH (09:30)
[2018-01-27] MEDS: CEFTRIAXONE 1 G PREMIX 50 ML IV SCH (09:49)
[2018-01-27] MEDS ORDERED: SODIUM CHLORIDE 0.45% 500 ML IV ONE (10:30)
[2018-01-27 10:40] LABS: AMMONIA 21 uMol/L (<32)
[2018-01-27] MEDS ORDERED: LEVETIRACETAM 500MG PREMIX 100 ML IV SCH (10:45)
[2018-01-27] MEDS ORDERED: POTASSIUM CHLORIDE INJ 30 MEQ in DEXT 5%/0.2% NACL 1,000 ML IV SCH (11:00)
[2018-01-27 11:25] LABS: PHOSPHORUS 1.7 mg/dL (2.5-4.9)
[2018-01-27] MEDS: LEVETIRACETAM 500MG in SODIUM CHLORIDE 0.9% 100ML IV SCH (12:07)
[2018-01-27] MEDS ORDERED: SODIUM PHOS,M-BASIC-D-BASIC 30 MM in DEXT 5% WATER 500 ML IV NR (16:00)
[2018-01-27] MEDS ORDERED: LATANOPROST 0.005% OPHTH DROPS 2.5ML BOTHEYE SCH (21:00)
[2018-01-27] MEDS: TAMSULOSIN HCL 0.4MG SR CAPSULE PO SCH (22:25)
[2018-01-27] MEDS: LATANOPROST 0.005% OPHTH DROPS 2.5ML BOTHEYE SCH (22:26)
[2018-01-27] MEDS: ATORVASTATIN CALCIUM 40MG TABLET PO SCH (22:26)
[2018-01-27] MEDS ORDERED: POTASSIUM CHLORIDE INJ 20 MEQ in DEXT 5%/0.2% NACL 1,000 ML IV SCH (23:30)
[2018-01-28] VITALS (41 sets, daily range): BP systolic 117–168; BP diastolic 70–110
[2018-01-28] MEDS: LEVETIRACETAM 500MG in SODIUM CHLORIDE 0.9% 100ML IV SCH ×2 (01:24→12:24)
[2018-01-28 06:09] LABS: BASOPHILS % 0.1 % (0.0-2.0); EOSINOPHILS % 0.3 % (0.0-5.0); HEMATOCRIT. 31.3 % (42.0-52.0); HEMOGLOBIN. 10.2 g/dL (14.0-18.0); LYMPHOCYTES % 11.2 % (20.0-50.0); MEAN CORPUSCULAR HEMOGLOBIN 27.4 pg (28.0-32.0); MEAN CORPUSCULAR VOLUME 84.6 fL (80.0-94.0); MEAN PLATELET VOLUME 8.8 fl (7.4-10.4); MONOCYTES % 2.6 % (2.0-8.0); NEUTROPHILS % 85.8 % (40.0-76.0); PLATELET 81 x1000/uL (130-400); RED CELL DISTRIBUTION WIDTH 14.6 % (11.6-14.6)
[2018-01-28] MEDS: BLOOD SUGAR DIAGNOSTIC STRIP TEST SCH ×4 (06:53→21:18)
[2018-01-28] MEDS: INSULIN LISPRO 100 UNITS/ML SUBCUT SCH ×4 (07:06→21:27)
[2018-01-28 07:47] LABS: PHOSPHORUS 8.2 mg/dL (2.5-4.9)
[2018-01-28] MEDS: PANTOPRAZOLE SODIUM 40 MG/VIAL IV SCH (09:43)
[2018-01-28] MEDS: CEFTRIAXONE 1 G PREMIX 50 ML IV SCH (09:43)
[2018-01-28] MEDS: POTASSIUM CHLORIDE INJ 10 MEQ in DEXT 5%/0.2% NACL 1,000 ML IV SCH ×2 (11:31→20:48)
[2018-01-28] MEDS: INSULIN GLARGINE UD 100 UNITS/ML SYR SUBCUT SCH (11:38)
[2018-01-28] MEDS: LATANOPROST 0.005% OPHTH DROPS 2.5ML BOTHEYE SCH (20:53)
[2018-01-28] MEDS: TAMSULOSIN HCL 0.4MG SR CAPSULE PO SCH (20:54)
[2018-01-28] MEDS: ATORVASTATIN CALCIUM 40MG TABLET PO SCH (20:54)
[2018-01-29] VITALS (26 sets, daily range): BP systolic 110–176; BP diastolic 64–107
[2018-01-29] MEDS: LEVETIRACETAM 500MG in SODIUM CHLORIDE 0.9% 100ML IV SCH ×2 (00:05→11:29)
[2018-01-29 05:39] LABS: BASOPHILS % 0.1 % (0.0-2.0); EOSINOPHILS % 1.3 % (0.0-5.0); HEMATOCRIT. 28.5 % (42.0-52.0); HEMOGLOBIN. 9.6 g/dL (14.0-18.0); LYMPHOCYTES % 14.9 % (20.0-50.0); MEAN CORPUSCULAR HEMOGLOBIN 27.9 pg (28.0-32.0); MEAN CORPUSCULAR VOLUME 83.1 fL (80.0-94.0); MEAN PLATELET VOLUME 8.9 fl (7.4-10.4); MONOCYTES % 3.5 % (2.0-8.0); NEUTROPHILS % 80.2 % (40.0-76.0); PLATELET 70 x1000/uL (130-400); RED BLOOD CELL COUNT 3.43 mill/uL (4.7-6.1); RED CELL DISTRIBUTION WIDTH 14.6 % (11.6-14.6)
[2018-01-29 05:47] LABS: CHLORIDE 119 mEq/L (98-107)
[2018-01-29 05:53] LABS: PHOSPHORUS 3.9 mg/dL (2.5-4.9)
[2018-01-29] MEDS: BLOOD SUGAR DIAGNOSTIC STRIP TEST SCH ×4 (06:54→21:00)
[2018-01-29] MEDS: INSULIN LISPRO 100 UNITS/ML SUBCUT SCH ×4 (06:54→21:00)
[2018-01-29] MEDS: POTASSIUM CHLORIDE INJ 10 MEQ in DEXT 5%/0.2% NACL 1,000 ML IV SCH ×2 (07:43→16:30)
[2018-01-29] MEDS: CEFTRIAXONE 1 G PREMIX 50 ML IV SCH (09:23)
[2018-01-29] MEDS: PANTOPRAZOLE SODIUM 40 MG/VIAL IV SCH (09:23)
[2018-01-29] MEDS: INSULIN GLARGINE UD 100 UNITS/ML SYR SUBCUT SCH (09:23)
[2018-01-29] MEDS ORDERED: POTASSIUM CHLORIDE 20MEQ/PACKET PO SCH (10:30)
[2018-01-29] MEDS ORDERED: LOSARTAN POTASSIUM 25 MG TABLET PO SCH (10:30)
[2018-01-29] MEDS: FERROUS SULFATE 325MG TABLET PO SCH (13:40)
[2018-01-29] MEDS: MULTIVITAMINS,THER W-MINERALS TABLET PO SCH (13:40)
[2018-01-29] MEDS: ZINC SULFATE 220 MG ( 50 ) CAPSULE PO SCH (13:40)
[2018-01-29] MEDS: ASCORBIC ACID 500 MG TABLET PO SCH (17:36)
[2018-01-29] MEDS: ATORVASTATIN CALCIUM 40MG TABLET PO SCH (20:54)
[2018-01-29] MEDS: LATANOPROST 0.005% OPHTH DROPS 2.5ML BOTHEYE SCH (20:54)
[2018-01-29] MEDS: TAMSULOSIN HCL 0.4MG SR CAPSULE PO SCH (20:55)
[2018-01-30] VITALS (22 sets, daily range): BP systolic 124–162; BP diastolic 61–107
[2018-01-30] MEDS: LEVETIRACETAM 500MG in SODIUM CHLORIDE 0.9% 100ML IV SCH ×2 (00:26→12:29)
[2018-01-30 05:48] LABS: BASOPHILS % 0.3 % (0.0-2.0); EOSINOPHILS % 1.2 % (0.0-5.0); HEMATOCRIT. 29.2 % (42.0-52.0); HEMOGLOBIN. 9.9 g/dL (14.0-18.0); LYMPHOCYTES % 21.5 % (20.0-50.0); MEAN CORPUSCULAR HEMOGLOBIN 27.6 pg (28.0-32.0); MEAN CORPUSCULAR VOLUME 81.9 fL (80.0-94.0); MEAN PLATELET VOLUME 9.9 fl (7.4-10.4); MONOCYTES % 2.1 % (2.0-8.0); NEUTROPHILS % 74.9 % (40.0-76.0); PLATELET 64 x1000/uL (130-400); RED BLOOD CELL COUNT 3.57 mill/uL (4.7-6.1); RED CELL DISTRIBUTION WIDTH 14.2 % (11.6-14.6)
[2018-01-30] MEDS: BLOOD SUGAR DIAGNOSTIC STRIP TEST SCH ×4 (06:15→21:25)
[2018-01-30] MEDS: POTASSIUM CHLORIDE INJ 10 MEQ in DEXT 5%/0.2% NACL 1,000 ML IV SCH ×2 (06:15→15:26)
[2018-01-30] MEDS: INSULIN LISPRO 100 UNITS/ML SUBCUT SCH ×4 (06:15→21:00)
[2018-01-30 06:17] LABS: CHLORIDE 112 mEq/L (98-107)
[2018-01-30] MEDS: ZINC SULFATE 220 MG ( 50 ) CAPSULE PO SCH (09:17)
[2018-01-30] MEDS: LOSARTAN POTASSIUM 50 MG TABLET PO SCH (09:17)
[2018-01-30] MEDS: FERROUS SULFATE 325MG TABLET PO SCH (09:18)
[2018-01-30] MEDS: ASCORBIC ACID 500 MG TABLET PO SCH ×2 (09:18→18:01)
[2018-01-30] MEDS: MULTIVITAMINS,THER W-MINERALS TABLET PO SCH (09:18)
[2018-01-30] MEDS: CEFTRIAXONE 1 G PREMIX 50 ML IV SCH (09:20)
[2018-01-30] MEDS: PANTOPRAZOLE SODIUM 40 MG/VIAL IV SCH (09:20)
[2018-01-30] MEDS ORDERED: SODIUM PHOS,M-BASIC-D-BASIC 20 MM in DEXT 5% WATER 243.3333 ML IV NR (10:30)
[2018-01-30] MEDS: INSULIN GLARGINE UD 100 UNITS/ML SYR SUBCUT SCH (11:15)
[2018-01-30] MEDS: LATANOPROST 0.005% OPHTH DROPS 2.5ML BOTHEYE SCH (21:25)
[2018-01-30] MEDS: ATORVASTATIN CALCIUM 40MG TABLET PO SCH (21:25)
[2018-01-30] MEDS: TAMSULOSIN HCL 0.4MG SR CAPSULE PO SCH (21:25)
[2018-01-31] VITALS: BP 163/77
[2018-01-31] MEDS: LEVETIRACETAM 500MG in SODIUM CHLORIDE 0.9% 100ML IV SCH ×2 (00:18→12:29)
[2018-01-31 04:00] VITALS: BP 145/79
[2018-01-31 06:34] LABS: CHLORIDE 111 mEq/L (98-107)
[2018-01-31] MEDS: BLOOD SUGAR DIAGNOSTIC STRIP TEST SCH ×2 (06:43→12:40)
[2018-01-31 06:46] LABS: PHOSPHORUS 2.2 mg/dL (2.5-4.9)
[2018-01-31 06:47] LABS: BASOPHILS % 0.2 % (0.0-2.0); EOSINOPHILS % 1.1 % (0.0-5.0); HEMATOCRIT. 31.6 % (42.0-52.0); HEMOGLOBIN. 10.6 g/dL (14.0-18.0); LYMPHOCYTES % 18.4 % (20.0-50.0); MEAN CORPUSCULAR HEMOGLOBIN 27.4 pg (28.0-32.0); MEAN CORPUSCULAR VOLUME 81.7 fL (80.0-94.0); MEAN PLATELET VOLUME 8.7 fl (7.4-10.4); MONOCYTES % 2.5 % (2.0-8.0); NEUTROPHILS % 77.8 % (40.0-76.0); PLATELET 55 x1000/uL (130-400); RED BLOOD CELL COUNT 3.87 mill/uL (4.7-6.1); RED CELL DISTRIBUTION WIDTH 14.6 % (11.6-14.6)
[2018-01-31] MEDS: INSULIN LISPRO 100 UNITS/ML SUBCUT SCH ×2 (07:41→13:10)
[2018-01-31 08:00] VITALS: BP 160/78
[2018-01-31] MEDS ORDERED: POTASSIUM PHOS,M-BASIC-D-BASIC 20 MMOL in DEXT 5% WATER 243.3333 ML IV NR (10:00)
[2018-01-31] MEDS ORDERED: INSULIN GLARGINE UD 100 UNITS/ML SYR SUBCUT SCH (10:00)
[2018-01-31] MEDS: ASCORBIC ACID 500 MG TABLET PO SCH (11:36)
[2018-01-31] MEDS: LOSARTAN POTASSIUM 50 MG TABLET PO SCH (11:36)
[2018-01-31] MEDS: FERROUS SULFATE 325MG TABLET PO SCH (11:37)
[2018-01-31] MEDS: PANTOPRAZOLE SODIUM 40 MG/VIAL IV SCH (11:37)
[2018-01-31] MEDS: MULTIVITAMINS,THER W-MINERALS TABLET PO SCH (11:37)
[2018-01-31 12:00] VITALS: BP 147/81
[2018-01-31] MEDS ORDERED: ZINC SULFATE 220 MG ( 50 ) CAPSULE PO SCH (12:00)
[2018-01-31] MEDS: POTASSIUM CHLORIDE INJ 10 MEQ in DEXT 5%/0.2% NACL 1,000 ML IV SCH (12:29)
[2018-01-31 16:00] VITALS: BP 138/88
[2018-01-31 17:18] VITALS: BP 138/88
== END 2018-01-31 17:38 | DRG 682 ==
LOC: ER 14:29 → ENRESERV 15:23 → CANRESERV 15:23 → CVICU 17:46 → EDBEDREQSVC 18:00 → EDBEDREQ 18:00 → ENRESERV 20:29 → 7WST 01-30 22:57
PROVIDERS: ADMIT Internal Medicine; ATTEND Internal Medicine
DX: N17.9 Acute kidney failure, unspecified (principal); E11.01 Type 2 diabetes mellitus with hyperosmolarity with coma; G93.41 Metabolic encephalopathy; E43 Unspecified severe protein-calorie malnutrition; N39.0 Urinary tract infection, site not specified; E87.0 Hyperosmolality and hypernatremia; Z68.1 Body mass index [BMI] 19.9 or less, adult; I69.351 Hemiplegia and hemiparesis following cerebral infarction affecting right dominant side; D69.6 Thrombocytopenia, unspecified; E86.0 Dehydration; R31.0 Gross hematuria; R62.7 Adult failure to thrive; F03.90 Unspecified dementia, unspecified severity, without behavioral disturbance, psychotic disturbance, mood disturbance, and anxiety; N18.9 Chronic kidney disease, unspecified; I12.9 Hypertensive chronic kidney disease with stage 1 through stage 4 chronic kidney disease, or unspecified chronic kidney disease; G40.909 Epilepsy, unspecified, not intractable, without status epilepticus; I95.9 Hypotension, unspecified; E87.6 Hypokalemia; E83.39 Other disorders of phosphorus metabolism; G93.89 Other specified disorders of brain; B96.1 Klebsiella pneumoniae [K. pneumoniae] as the cause of diseases classified elsewhere; E11.22 Type 2 diabetes mellitus with diabetic chronic kidney disease; K56.41 Fecal impaction; L89.150 Pressure ulcer of sacral region, unstageable; N40.1 Benign prostatic hyperplasia with lower urinary tract symptoms; E11.65 Type 2 diabetes mellitus with hyperglycemia; L89.159 Pressure ulcer of sacral region, unspecified stage; E11.51 Type 2 diabetes mellitus with diabetic peripheral angiopathy without gangrene; E87.8 Other disorders of electrolyte and fluid balance, not elsewhere classified; H40.9 Unspecified glaucoma; I25.10 Atherosclerotic heart disease of native coronary artery without angina pectoris; J44.9 Chronic obstructive pulmonary disease, unspecified; Z79.4 Long term (current) use of insulin; Z90.49 Acquired absence of other specified parts of digestive tract; Z90.79 Acquired absence of other genital organ(s); Z95.1 Presence of aortocoronary bypass graft; Z95.2 Presence of prosthetic heart valve; Z98.1 Arthrodesis status; Z79.82 Long term (current) use of aspirin; Z79.899 Other long term (current) drug therapy
CPT/HCPCS: 36415; 70450; 71045; 80048; 80053; 81003; 82140; 82962; 83605; 83735; 84100; 84134; 85025; 85610; 87040; 87077; 87086; 87186; 92610; 93005; 93970; 96360; 96361; 97162; 99291; A6261; C9113; J0696; J1650; J1815; J1953; J3480; J3490; J7030; J7040; J7050; J7060; J7070; A4315

== ENCOUNTER 2018-03-17 12:19 | Inpatient (IN) | payer MEDICARE, MEDICAID ==
[2018-03-17] VITALS (38 sets, daily range): BP systolic 48–155; BP diastolic 29–117
[~2018-03-17] VITALS: Ht 170.2 cm; Wt 56.7 kg
[2018-03-17] MEDS ORDERED: DOPAMINE 400MG PREMIX 250 ML IV ONE ×2 (12:41→16:15)
[2018-03-17] MEDS ORDERED: METRONIDAZOLE 500 MG PREMIX 100 ML IV ONE (13:15)
[2018-03-17] MEDS ORDERED: PIPERACILLIN/TAZ 3.375G PREMIX 50 ML IV ONE (13:15)
[2018-03-17] MEDS ORDERED: SODIUM CHLORIDE 0.9% 1000ML BAG (SEPSIS BOLUS) IV ONE (13:15)
[2018-03-17] MEDS ORDERED: VANCOMYCIN 1 G PREMIX 200 ML IV ONE (13:15)
[2018-03-17] MEDS ORDERED: NOREPINEPHRINE 4 MG in DEXT 5% WATER 246 ML IV ONE ×6 (13:15→16:30)
[2018-03-17 13:47] LABS: BG BASE EXCESS -10.3 mmol/L (-2.0-2.0); BG CARBOXYHEMOGLOBIN 0.4 % (0.5-1.5); BG DEOXYHEMOGLOBIN 0.2 % (0.0-5.0); BG FRACTION INSPIRED OXYGEN 100; BG HCO3 ACT 12.9 mmol/L (22.0-26.0); BG METHEMOGLOBIN 0.1 % (0.0-1.5); BG OXYGEN SATURATION 99.8 % (92.0-98.5); BG OXYHEMOGLOBIN 99.3 % (94.0-97.0); BG PH 7.406 (7.350-7.450); BG PO2 520.1 mmHg (75.0-100.0); BG SAMPLE SITE LEFT BRACHIAL; BG TIDAL VOLUME(mL) 500 mL; BG TOTAL HEMOGLOBIN 8.8 g/dL (12.0-18.0); BG VENT MODE VENT - A/C; BG VENT RATE 16 set
[2018-03-17] MEDS ORDERED: SUCCINYLCHOLINE CHLORIDE 200MG/10ML IV ONE (13:59)
[2018-03-17] MEDS ORDERED: ETOMIDATE 2MG/ML 10ML VIAL IV ONE (13:59)
[2018-03-17 14:00] LABS: HEMATOCRIT. 27.3 % (42.0-52.0); HEMOGLOBIN. 9.3 g/dL (14.0-18.0); MEAN CORPUSCULAR HEMOGLOBIN 26.7 pg (28.0-32.0); MEAN CORPUSCULAR VOLUME 78.7 fL (80.0-94.0); MEAN PLATELET VOLUME 7.1 fl (7.4-10.4); PLATELET 342 x1000/uL (130-400); RED BLOOD CELL COUNT 3.47 mill/uL (4.7-6.1); RED CELL DISTRIBUTION WIDTH 15.4 % (11.6-14.6)
[2018-03-17 14:06] LABS: CHLORIDE 112 mEq/L (98-107)
[2018-03-17 14:07] LABS: INR 1.2; PARTIAL THROMBOPLASTIN TIME 28.9 sec (23.4-31.0)
[2018-03-17 14:18] LABS: PLATELET ESTIMATE NORMAL
[2018-03-17] MEDS ORDERED: PROPOFOL 10MG/ML 100ML 100 ML IV PRN (16:15)
[2018-03-17] MEDS ORDERED: NOREPINEPHRINE 16 MG in DEXT 5% WATER 234 ML IV PRN ×2 (16:15→17:30)
[2018-03-17] MEDS ORDERED: ACETAMINOPHEN 650MG SUPP PR PRN (17:30)
[2018-03-17] MEDS ORDERED: GUAIFENESIN 200MG/10ML SUGAR FREE UDC PO PRN (17:30)
[2018-03-17] MEDS ORDERED: PHENYLEPHRINE 40 MG in DEXT 5% WATER 246 ML IV PRN (17:30)
[2018-03-17] MEDS ORDERED: DOCUSATE SODIUM 100MG CAPSULE PO PRN (17:30)
[2018-03-17] MEDS ORDERED: ONDANSETRON HCL 4MG/2ML INJ IV PRN (17:30)
[2018-03-17] MEDS ORDERED: DIPHENHYDRAMINE 50MG/ML VIAL IV PRN (17:30)
[2018-03-17] MEDS ORDERED: MAGNESIUM/ALUMINUM HYDROXIDE/SIMETHICONE 30ML UDC PO PRN (17:30)
[2018-03-17] MEDS ORDERED: NOREPINEPHRINE 4 MG in DEXT 5% WATER 246 ML IV PRN (17:30)
[2018-03-17] MEDS ORDERED: VANCOMYCIN 1 G PREMIX 200 ML IV SCH (17:30)
[2018-03-17] MEDS ORDERED: HYDROCODONE/ACETAMINOPHEN 5/325MG TABLET PO PRN (17:30)
[2018-03-17] MEDS ORDERED: NA PHOS,M-B/NA PHOS,DI-BA ENEMA 118ML PR PRN (17:30)
[2018-03-17] MEDS ORDERED: IPRATROPIUM/ALBUTEROL 0.5-3(2.5)MG/3ML NEB INH PRN (17:30)
[2018-03-17] MEDS ORDERED: ACETAMINOPHEN 325MG TABLET PO PRN (17:30)
[2018-03-17] MEDS ORDERED: PIPERACILLIN/TAZ 3.375G PREMIX 50 ML IV SCH (17:30)
[2018-03-17 17:34] LABS: CLARITY URINE TURBID (CLEAR); COLOR URINE YELLOW (YELLOW); KETONES URINE NEGATIVE (NEGATIVE); LEUKOCYTE ESTERASE URINE 3+ (NEGATIVE); NITRITE URINE NEGATIVE (NEGATIVE); OCCULT BLOOD URINE 3+ (NEGATIVE); PH URINE 6.5 (4.5-8.0); PROTEIN URINE 3+ (NEGATIVE); SPECIFIC GRAVITY URINE 1.014 (1.005-1.030)
[2018-03-17] MEDS: LEVETIRACETAM 500 MG in SODIUM CHLORIDE 0.9% 100 ML IV SCH (18:28)
[2018-03-17] MEDS: SODIUM CHLORIDE 0.45% 1,000 ML IV SCH (18:29)
[2018-03-17] MEDS: PANTOPRAZOLE SODIUM 40 MG/VIAL IV SCH (18:29)
[2018-03-17] MEDS: ENOXAPARIN 40MG/0.4ML SYR SUBCUT SCH (18:29)
[2018-03-17] MEDS: NOREPINEPHRINE 16 MG in DEXT 5% WATER 234 ML IV PRN (18:31)
[2018-03-17] MEDS: INSULIN LISPRO 100 UNITS/ML SUBCUT SCH ×2 (19:39→21:09)
[2018-03-17] MEDS: IPRATROPIUM/ALBUTEROL 0.5-3(2.5)MG/3ML NEB INH SCH (20:05)
[2018-03-17] MEDS ORDERED: PHENYLEPHRINE 80 MG in DEXT 5% WATER 492 ML IV PRN (20:34)
[2018-03-17] MEDS: BLOOD SUGAR DIAGNOSTIC STRIP TEST SCH (21:09)
[2018-03-17] MEDS: SODIUM CHLORIDE 0.9% INJ 3ML FLUSH IVF SCH (21:09)
[2018-03-17] MEDS: PIPERACILLIN/TAZ 3.375G PREMIX 50 ML IV SCH (21:09)
[2018-03-17] MEDS: PHENYLEPHRINE 80 MG in DEXT 5% WATER 492 ML IV PRN (23:22)
[2018-03-18] VITALS (98 sets, daily range): BP systolic 70–164; BP diastolic 29–113
[2018-03-18 01:03] LABS: CREATINE KINASE MB FRACTION 8.3 ng/mL (0.5-3.6)
[2018-03-18] MEDS: NOREPINEPHRINE 16 MG in DEXT 5% WATER 234 ML IV PRN ×2 (04:00→13:07)
[2018-03-18] MEDS: IPRATROPIUM/ALBUTEROL 0.5-3(2.5)MG/3ML NEB INH SCH ×4 (04:49→20:30)
[2018-03-18] MEDS: SODIUM CHLORIDE 0.9% INJ 3ML FLUSH IVF SCH ×3 (05:42→22:18)
[2018-03-18] MEDS: PIPERACILLIN/TAZ 3.375G PREMIX 50 ML IV SCH ×3 (05:42→22:42)
[2018-03-18] MEDS: BLOOD SUGAR DIAGNOSTIC STRIP TEST SCH ×4 (05:42→20:24)
[2018-03-18] MEDS: INSULIN LISPRO 100 UNITS/ML SUBCUT SCH ×4 (05:46→20:24)
[2018-03-18] MEDS: SODIUM CHLORIDE 0.45% 1,000 ML IV SCH (05:59)
[2018-03-18] MEDS: VANCOMYCIN 750 MG PREMIX 150 ML IV SCH ×2 (06:06→23:44)
[2018-03-18 06:08] LABS: HEMATOCRIT. 28.5 % (42.0-52.0); HEMOGLOBIN. 9.4 g/dL (14.0-18.0); MEAN CORPUSCULAR HEMOGLOBIN 25.9 pg (28.0-32.0); MEAN CORPUSCULAR VOLUME 78.7 fL (80.0-94.0); MEAN PLATELET VOLUME 7.7 fl (7.4-10.4); PLATELET 379 x1000/uL (130-400); RED BLOOD CELL COUNT 3.62 mill/uL (4.7-6.1); RED CELL DISTRIBUTION WIDTH 15.4 % (11.6-14.6)
[2018-03-18 06:25] LABS: CHLORIDE 106 mEq/L (98-107)
[2018-03-18 06:37] LABS: LDL CHOLESTEROL 40 mg/dL (5-100)
[2018-03-18 06:38] LABS: CREATINE KINASE 104 IU/L (39-308)
[2018-03-18 06:39] LABS: HDL CHOLESTEROL 32 mg/dL (40-59)
[2018-03-18 06:41] LABS: CREATINE KINASE MB FRACTION 7.4 ng/mL (0.5-3.6)
[2018-03-18 08:00] LABS: BG BASE EXCESS -10.5 mmol/L (-2.0-2.0); BG CARBOXYHEMOGLOBIN 0.3 % (0.5-1.5); BG DEOXYHEMOGLOBIN 0.6 % (0.0-5.0); BG FRACTION INSPIRED OXYGEN 60; BG HCO3 ACT 12.9 mmol/L (22.0-26.0); BG METHEMOGLOBIN 0.1 % (0.0-1.5); BG OXYGEN SATURATION 99.4 % (92.0-98.5); BG PCO2 22.1 mmHg (35.0-45.0); BG PH 7.384 (7.350-7.450); BG PO2 285.8 mmHg (75.0-100.0); BG SAMPLE SITE RIGHT RADIAL; BG TIDAL VOLUME(mL) 500 mL; BG VENT MODE VENT - A/C; BG VENT RATE 16 set
[2018-03-18] MEDS: LEVETIRACETAM 500 MG in SODIUM CHLORIDE 0.9% 100 ML IV SCH ×2 (08:33→20:52)
[2018-03-18] MEDS ORDERED: POTASSIUM CHLORIDE 20MEQ TABLET SR PO PRN (08:45)
[2018-03-18] MEDS: POTASSIUM CHLORIDE 20MEQ/PACKET NG PRN (09:19)
[2018-03-18] MEDS: PHENYLEPHRINE 80 MG in DEXT 5% WATER 492 ML IV PRN ×2 (09:59→19:46)
[2018-03-18] MEDS: SODIUM CHLORIDE 0.9% 1,000 ML IV SCH ×2 (10:16→23:40)
[2018-03-18 11:05] LABS: T4 FREE 1.35 ng/dL (0.76-1.46)
[2018-03-18] MEDS ORDERED: PROPOFOL 10MG/ML 100ML 100 ML IV PRN (11:15)
[2018-03-18 13:20] LABS: AMMONIA 14 uMol/L (<32)
[2018-03-18 13:48] LABS: PLATELET ESTIMATE NORMAL
[2018-03-18 13:56] LABS: CREATINE KINASE MB FRACTION 6.5 ng/mL (0.5-3.6)
[2018-03-18 15:34] LABS: BG BASE EXCESS -11.5 mmol/L (-2.0-2.0); BG CARBOXYHEMOGLOBIN 0.3 % (0.5-1.5); BG DEOXYHEMOGLOBIN 1.1 % (0.0-5.0); BG FRACTION INSPIRED OXYGEN 40; BG HCO3 ACT 12.1 mmol/L (22.0-26.0); BG OXYGEN SATURATION 98.9 % (92.0-98.5); BG OXYHEMOGLOBIN 98.6 % (94.0-97.0); BG PH 7.379 (7.350-7.450); BG PO2 178.2 mmHg (75.0-100.0); BG SAMPLE SITE RIGHT BRACHIAL; BG TIDAL VOLUME(mL) 500 mL; BG VENT MODE VENT - A/C; BG VENT RATE 16 set
[2018-03-18] MEDS: VANCOMYCIN HCL 1000 MG/20 ML ORAL PO SCH ×2 (18:00→23:44)
[2018-03-18] MEDS: PANTOPRAZOLE SODIUM 40 MG/VIAL IV SCH (18:26)
[2018-03-18] MEDS: ENOXAPARIN 40MG/0.4ML SYR SUBCUT SCH (18:26)
[2018-03-19] VITALS (96 sets, daily range): BP systolic 67–162; BP diastolic 48–93
[2018-03-19 00:34] LABS: CREATINE KINASE MB FRACTION 5.3 ng/mL (0.5-3.6)
[2018-03-19] MEDS: IPRATROPIUM/ALBUTEROL 0.5-3(2.5)MG/3ML NEB INH SCH ×4 (01:40→20:06)
[2018-03-19] MEDS: INSULIN LISPRO 100 UNITS/ML SUBCUT SCH ×4 (05:34→21:00)
[2018-03-19] MEDS: BLOOD SUGAR DIAGNOSTIC STRIP TEST SCH ×4 (05:34→21:32)
[2018-03-19] MEDS: SODIUM CHLORIDE 0.9% INJ 3ML FLUSH IVF SCH ×3 (05:35→21:48)
[2018-03-19] MEDS: PIPERACILLIN/TAZ 3.375G PREMIX 50 ML IV SCH ×3 (05:35→21:32)
[2018-03-19] MEDS: NOREPINEPHRINE 16 MG in DEXT 5% WATER 234 ML IV PRN (05:36)
[2018-03-19] MEDS: VANCOMYCIN HCL 1000 MG/20 ML ORAL PO SCH ×4 (05:36→23:44)
[2018-03-19 05:42] LABS: CREATINE KINASE MB FRACTION 4.5 ng/mL (0.5-3.6)
[2018-03-19 07:11] LABS: *AMPHETAMINES SCREEN URINE NEGATIVE (NEGATIVE); *BARBITURATES SCREEN URINE NEGATIVE (NEGATIVE); *BENZODIAZEPINES SCREEN URINE NEGATIVE (NEGATIVE); *COCAINE SCREEN URINE NEGATIVE (NEGATIVE); METHADONE URINE SCREEN NEGATIVE (NEGATIVE)
[2018-03-19 07:12] LABS: CANNABINOID URINE SCREEN NEGATIVE (NEGATIVE); OPIATES URINE SCREEN NEGATIVE (NEGATIVE); PHENCYCLIDINE URINE SCREEN NEGATIVE (NEGATIVE)
[2018-03-19 08:25] LABS: BG BASE EXCESS -9.7 mmol/L (-2.0-2.0); BG CARBOXYHEMOGLOBIN 0.5 % (0.5-1.5); BG DEOXYHEMOGLOBIN 0.7 % (0.0-5.0); BG FRACTION INSPIRED OXYGEN 40; BG HCO3 ACT 14.1 mmol/L (22.0-26.0); BG METHEMOGLOBIN 0.3 % (0.0-1.5); BG OXYGEN SATURATION 99.3 % (92.0-98.5); BG OXYHEMOGLOBIN 98.5 % (94.0-97.0); BG PCO2 24.3 mmHg (35.0-45.0); BG PH 7.383 (7.350-7.450); BG PO2 192.7 mmHg (75.0-100.0); BG SAMPLE SITE RIGHT RADIAL; BG TIDAL VOLUME(mL) 500 mL; BG TOTAL HEMOGLOBIN 8.2 g/dL (12.0-18.0); BG VENT MODE VENT - A/C; BG VENT RATE 16 set
[2018-03-19] MEDS: LEVETIRACETAM 500 MG in SODIUM CHLORIDE 0.9% 100 ML IV SCH ×2 (09:58→21:32)
[2018-03-19] MEDS: ASPIRIN 81MG TABLET PO SCH (09:58)
[2018-03-19] MEDS: VANCOMYCIN 750 MG PREMIX 150 ML IV SCH ×2 (13:00→23:44)
[2018-03-19] MEDS: SODIUM CHLORIDE 0.9% 1,000 ML IV SCH (14:36)
[2018-03-19] MEDS: PHENYLEPHRINE 80 MG in DEXT 5% WATER 492 ML IV PRN (16:52)
[2018-03-19] MEDS: PANTOPRAZOLE SODIUM 40 MG/VIAL IV SCH (17:26)
[2018-03-19] MEDS: ENOXAPARIN 40MG/0.4ML SYR SUBCUT SCH (17:27)
[2018-03-20] VITALS (98 sets, daily range): BP systolic 86–153; BP diastolic 57–115
[2018-03-20] MEDS: SODIUM CHLORIDE 0.9% 1,000 ML IV SCH ×2 (01:38→10:48)
[2018-03-20] MEDS: IPRATROPIUM/ALBUTEROL 0.5-3(2.5)MG/3ML NEB INH SCH ×4 (02:01→20:40)
[2018-03-20] MEDS: PIPERACILLIN/TAZ 3.375G PREMIX 50 ML IV SCH ×3 (05:25→21:38)
[2018-03-20] MEDS: SODIUM CHLORIDE 0.9% INJ 3ML FLUSH IVF SCH ×3 (05:26→21:36)
[2018-03-20] MEDS: VANCOMYCIN HCL 1000 MG/20 ML ORAL PO SCH ×4 (05:26→23:23)
[2018-03-20] MEDS: BLOOD SUGAR DIAGNOSTIC STRIP TEST SCH ×4 (05:53→20:40)
[2018-03-20 06:28] LABS: HEMATOCRIT. 22.1 % (42.0-52.0); HEMOGLOBIN. 7.5 g/dL (14.0-18.0); MEAN CORPUSCULAR HEMOGLOBIN 26.4 pg (28.0-32.0); MEAN CORPUSCULAR VOLUME 77.4 fL (80.0-94.0); MEAN PLATELET VOLUME 7.4 fl (7.4-10.4); PLATELET 233 x1000/uL (130-400); RED BLOOD CELL COUNT 2.85 mill/uL (4.7-6.1); RED CELL DISTRIBUTION WIDTH 15.4 % (11.6-14.6)
[2018-03-20 06:45] LABS: CHLORIDE 117 mEq/L (98-107)
[2018-03-20] MEDS: INSULIN LISPRO 100 UNITS/ML SUBCUT SCH ×4 (07:00→20:40)
[2018-03-20] MEDS: POTASSIUM CHLORIDE 20MEQ/PACKET NG PRN (08:19)
[2018-03-20] MEDS: PHENYLEPHRINE 80 MG in DEXT 5% WATER 492 ML IV PRN (08:19)
[2018-03-20] MEDS: ASPIRIN 81MG TABLET PO SCH (08:19)
[2018-03-20 08:55] LABS: BG BASE EXCESS -7.9 mmol/L (-2.0-2.0); BG CARBOXYHEMOGLOBIN 0.1 % (0.5-1.5); BG DEOXYHEMOGLOBIN 1.1 % (0.0-5.0); BG FRACTION INSPIRED OXYGEN 40; BG HCO3 ACT 15.8 mmol/L (22.0-26.0); BG METHEMOGLOBIN 0.3 % (0.0-1.5); BG OXYGEN SATURATION 98.9 % (92.0-98.5); BG OXYHEMOGLOBIN 98.5 % (94.0-97.0); BG PCO2 25.9 mmHg (35.0-45.0); BG PH 7.402 (7.350-7.450); BG PO2 191.8 mmHg (75.0-100.0); BG SAMPLE SITE RIGHT BRACHIAL; BG TIDAL VOLUME(mL) 500 mL; BG TOTAL HEMOGLOBIN 8.9 g/dL (12.0-18.0); BG VENT MODE VENT - A/C; BG VENT RATE 16 set
[2018-03-20] MEDS: LEVETIRACETAM 500 MG in SODIUM CHLORIDE 0.9% 100 ML IV SCH ×2 (09:13→20:40)
[2018-03-20] MEDS: FAMOTIDINE 20MG/2ML VIAL IV SCH (09:13)
[2018-03-20 10:29] LABS: PLATELET ESTIMATE NORMAL
[2018-03-20] MEDS: VANCOMYCIN 750 MG PREMIX 150 ML IV SCH ×2 (12:28→23:23)
[2018-03-20] MEDS: SODIUM HYPOCHLORITE 0.125% 473ML SOLUTION TOP SCH (12:28)
[2018-03-20] MEDS ORDERED: PROPOFOL 10MG/ML 100ML 100 ML IV PRN ×2 (14:36)
[2018-03-20] MEDS: DEXTROSE 50% WATER 50ML SYRINGE IV PRN (18:33)
[2018-03-21] VITALS (79 sets, daily range): BP systolic 74–178; BP diastolic 52–104
[2018-03-21] MEDS: SODIUM HYPOCHLORITE 0.125% 473ML SOLUTION TOP SCH ×2 (01:00→13:00)
[2018-03-21] MEDS: IPRATROPIUM/ALBUTEROL 0.5-3(2.5)MG/3ML NEB INH SCH ×2 (02:28→08:25)
[2018-03-21] MEDS: SODIUM CHLORIDE 0.9% 1,000 ML IV SCH ×2 (03:43→18:57)
[2018-03-21 05:41] LABS: BASOPHILS % 0.3 % (0.0-2.0); EOSINOPHILS % 0.6 % (0.0-5.0); HEMATOCRIT. 27.6 % (42.0-52.0); HEMOGLOBIN. 9.5 g/dL (14.0-18.0); LYMPHOCYTES % 7.1 % (20.0-50.0); MEAN CORPUSCULAR HEMOGLOBIN 27.1 pg (28.0-32.0); MEAN CORPUSCULAR VOLUME 78.8 fL (80.0-94.0); MEAN PLATELET VOLUME 7.6 fl (7.4-10.4); MONOCYTES % 3.2 % (2.0-8.0); NEUTROPHILS % 88.8 % (40.0-76.0); PLATELET 188 x1000/uL (130-400); RED CELL DISTRIBUTION WIDTH 16.3 % (11.6-14.6)
[2018-03-21 05:53] LABS: CHLORIDE 118 mEq/L (98-107)
[2018-03-21] MEDS: SODIUM CHLORIDE 0.9% INJ 3ML FLUSH IVF SCH ×3 (06:11→22:15)
[2018-03-21] MEDS: PIPERACILLIN/TAZ 3.375G PREMIX 50 ML IV SCH ×3 (06:12→22:15)
[2018-03-21] MEDS: VANCOMYCIN HCL 1000 MG/20 ML ORAL PO SCH ×4 (06:12→23:55)
[2018-03-21] MEDS: BLOOD SUGAR DIAGNOSTIC STRIP TEST SCH ×4 (06:12→20:25)
[2018-03-21] MEDS: INSULIN LISPRO 100 UNITS/ML SUBCUT SCH ×4 (06:15→20:25)
[2018-03-21 07:43] LABS: BG BASE EXCESS -9.3 mmol/L (-2.0-2.0); BG CARBOXYHEMOGLOBIN 0.3 % (0.5-1.5); BG DEOXYHEMOGLOBIN 1.5 % (0.0-5.0); BG HCO3 ACT 14.3 mmol/L (22.0-26.0); BG METHEMOGLOBIN 0.1 % (0.0-1.5); BG OXYGEN SATURATION 98.5 % (92.0-98.5); BG OXYHEMOGLOBIN 98.1 % (94.0-97.0); BG PH 7.392 (7.350-7.450); BG PO2 167.2 mmHg (75.0-100.0); BG SAMPLE SITE RIGHT BRACHIAL; BG TIDAL VOLUME(mL) 500 mL; BG TOTAL HEMOGLOBIN 9.5 g/dL (12.0-18.0); BG VENT MODE VENT - A/C; BG VENT RATE 16 set
[2018-03-21] MEDS: FAMOTIDINE 20MG/2ML VIAL IV SCH (08:35)
[2018-03-21] MEDS: LEVETIRACETAM 500 MG in SODIUM CHLORIDE 0.9% 100 ML IV SCH ×2 (08:35→20:25)
[2018-03-21 10:03] LABS: VANCOMYCIN TROUGH 34.2 ug/mL (5.0-10.0)
[2018-03-21] MEDS: IPRATROPIUM/ALBUTEROL 0.5-3(2.5)MG/3ML NEB HHN SCH ×4 (12:00→23:58)
[2018-03-21] MEDS: ACETYLCYSTEINE 100MG/ML 10% VIAL 4ML INH SCH ×2 (16:20→23:58)
[2018-03-21] MEDS: ACETAMINOPHEN 650MG/20.3ML UDC GT PRN (20:14)
[2018-03-21] MEDS: CLONIDINE 0.1MG TABLET PO PRN (20:15)
[2018-03-22] VITALS (47 sets, daily range): BP systolic 123–175; BP diastolic 69–99
[2018-03-22] MEDS: SODIUM HYPOCHLORITE 0.125% 473ML SOLUTION TOP SCH ×3 (00:54→23:36)
[2018-03-22] MEDS: IPRATROPIUM/ALBUTEROL 0.5-3(2.5)MG/3ML NEB HHN SCH ×5 (04:00→20:40)
[2018-03-22] MEDS: SODIUM CHLORIDE 0.9% 1,000 ML IV SCH ×2 (04:30→09:38)
[2018-03-22] MEDS: SODIUM CHLORIDE 0.9% INJ 3ML FLUSH IVF SCH ×3 (05:42→21:07)
[2018-03-22] MEDS: VANCOMYCIN HCL 1000 MG/20 ML ORAL PO SCH ×4 (05:42→23:36)
[2018-03-22] MEDS: PIPERACILLIN/TAZ 3.375G PREMIX 50 ML IV SCH ×3 (05:42→21:08)
[2018-03-22] MEDS: BLOOD SUGAR DIAGNOSTIC STRIP TEST SCH ×4 (05:43→21:06)
[2018-03-22] MEDS: INSULIN LISPRO 100 UNITS/ML SUBCUT SCH ×4 (06:25→21:00)
[2018-03-22 07:49] LABS: BG BASE EXCESS -8.8 mmol/L (-2.0-2.0); BG DEOXYHEMOGLOBIN 1.5 % (0.0-5.0); BG FRACTION INSPIRED OXYGEN 40; BG METHEMOGLOBIN 0.4 % (0.0-1.5); BG OXYGEN SATURATION 98.5 % (92.0-98.5); BG OXYHEMOGLOBIN 98.1 % (94.0-97.0); BG PCO2 25.2 mmHg (35.0-45.0); BG PH 7.392 (7.350-7.450); BG PO2 171.4 mmHg (75.0-100.0); BG SAMPLE SITE RIGHT BRACHIAL; BG TIDAL VOLUME(mL) 500 mL; BG TOTAL HEMOGLOBIN 8.6 g/dL (12.0-18.0); BG VENT MODE VENT - A/C; BG VENT RATE 12 set
[2018-03-22] MEDS: ACETYLCYSTEINE 100MG/ML 10% VIAL 4ML INH SCH ×2 (08:58→15:50)
[2018-03-22] MEDS: LEVETIRACETAM 500 MG in SODIUM CHLORIDE 0.9% 100 ML IV SCH ×2 (09:39→21:08)
[2018-03-22] MEDS: FAMOTIDINE 20MG/2ML VIAL IV SCH (09:39)
[2018-03-22 12:52] LABS: BG BASE EXCESS -8.9 mmol/L (-2.0-2.0); BG CARBOXYHEMOGLOBIN 0.3 % (0.5-1.5); BG DEOXYHEMOGLOBIN 1.9 % (0.0-5.0); BG FRACTION INSPIRED OXYGEN 40; BG HCO3 ACT 15.4 mmol/L (22.0-26.0); BG METHEMOGLOBIN 0.3 % (0.0-1.5); BG OXYGEN SATURATION 98.1 % (92.0-98.5); BG OXYHEMOGLOBIN 97.5 % (94.0-97.0); BG PCO2 27.6 mmHg (35.0-45.0); BG PH 7.364 (7.350-7.450); BG PO2 141.5 mmHg (75.0-100.0); BG PRESSURE SUPPORT 8; BG SAMPLE SITE RIGHT BRACHIAL; BG TOTAL HEMOGLOBIN 8.8 g/dL (12.0-18.0); BG VENT MODE VENT - CPAP
[2018-03-22] MEDS: CLONIDINE 0.1MG TABLET PO PRN (14:14)
[2018-03-22] MEDS: VANCOMYCIN 1 G PREMIX 200 ML IV SCH (17:38)
[2018-03-22] MEDS: DEXTROSE 50% WATER 50ML SYRINGE IV PRN (17:38)
[2018-03-23] VITALS (29 sets, daily range): BP systolic 136–172; BP diastolic 67–113
[2018-03-23] MEDS: ACETYLCYSTEINE 100MG/ML 10% VIAL 4ML INH SCH ×3 (00:21→16:41)
[2018-03-23] MEDS: IPRATROPIUM/ALBUTEROL 0.5-3(2.5)MG/3ML NEB HHN SCH ×5 (00:21→20:31)
[2018-03-23] MEDS: SODIUM CHLORIDE 0.9% 1,000 ML IV SCH (04:30)
[2018-03-23] MEDS: INSULIN LISPRO 100 UNITS/ML SUBCUT SCH ×4 (05:40→21:00)
[2018-03-23] MEDS: BLOOD SUGAR DIAGNOSTIC STRIP TEST SCH ×4 (05:40→21:11)
[2018-03-23] MEDS: DEXTROSE 50% WATER 50ML SYRINGE IV PRN (05:40)
[2018-03-23] MEDS: SODIUM CHLORIDE 0.9% INJ 3ML FLUSH IVF SCH ×3 (05:40→22:13)
[2018-03-23] MEDS: VANCOMYCIN HCL 1000 MG/20 ML ORAL PO SCH ×4 (06:08→23:04)
[2018-03-23] MEDS: PIPERACILLIN/TAZ 3.375G PREMIX 50 ML IV SCH ×3 (06:08→23:04)
[2018-03-23] MEDS: LEVETIRACETAM 500 MG in SODIUM CHLORIDE 0.9% 100 ML IV SCH ×2 (09:39→22:02)
[2018-03-23] MEDS: FAMOTIDINE 20MG/2ML VIAL IV SCH (09:39)
[2018-03-23] MEDS: DEXT 5%/0.45% NACL 1000ML 1,000 ML IV SCH (12:04)
[2018-03-23] MEDS: SODIUM HYPOCHLORITE 0.125% 473ML SOLUTION TOP SCH (12:05)
[2018-03-23] MEDS ORDERED: LIDOCAINE HCL/EPINEPHRINE 1%-EPI 1:100,000 20 ML VIAL INFIL NR (12:30)
[2018-03-23] MEDS: VANCOMYCIN 1 G PREMIX 200 ML IV SCH (17:03)
[2018-03-23] MEDS: ENOXAPARIN 40MG/0.4ML SYR SUBCUT SCH (22:03)
[2018-03-24] VITALS: BP 148/88
[2018-03-24] MEDS: ACETYLCYSTEINE 100MG/ML 10% VIAL 4ML INH SCH ×2 (01:11→15:19)
[2018-03-24] MEDS: IPRATROPIUM/ALBUTEROL 0.5-3(2.5)MG/3ML NEB HHN SCH ×5 (01:11→20:35)
[2018-03-24] MEDS: VANCOMYCIN HCL 1000 MG/20 ML ORAL PO SCH ×4 (05:22→23:55)
[2018-03-24] MEDS: PIPERACILLIN/TAZ 3.375G PREMIX 50 ML IV SCH ×3 (05:22→22:23)
[2018-03-24] MEDS: INSULIN LISPRO 100 UNITS/ML SUBCUT SCH ×4 (05:48→21:00)
[2018-03-24] MEDS: BLOOD SUGAR DIAGNOSTIC STRIP TEST SCH ×4 (05:48→21:00)
[2018-03-24] MEDS: SODIUM CHLORIDE 0.9% INJ 3ML FLUSH IVF SCH ×3 (05:49→22:23)
[2018-03-24 06:29] VITALS: BP 139/79
[2018-03-24 08:09] VITALS: BP 130/79
[2018-03-24] MEDS: DEXT 5%/0.45% NACL 1000ML 1,000 ML IV SCH ×2 (09:21→14:10)
[2018-03-24] MEDS: FAMOTIDINE 20MG/2ML VIAL IV SCH (09:21)
[2018-03-24 10:10] LABS: BASOPHILS % 0.7 % (0.0-2.0); EOSINOPHILS % 1.7 % (0.0-5.0); HEMATOCRIT. 24.8 % (42.0-52.0); HEMOGLOBIN. 8.7 g/dL (14.0-18.0); LYMPHOCYTES % 10.3 % (20.0-50.0); MEAN CORPUSCULAR HEMOGLOBIN 27.2 pg (28.0-32.0); MEAN CORPUSCULAR VOLUME 77.9 fL (80.0-94.0); MEAN PLATELET VOLUME 6.9 fl (7.4-10.4); NEUTROPHILS % 82.3 % (40.0-76.0); PLATELET 159 x1000/uL (130-400); RED BLOOD CELL COUNT 3.19 mill/uL (4.7-6.1); RED CELL DISTRIBUTION WIDTH 16.7 % (11.6-14.6)
[2018-03-24 10:44] LABS: CHLORIDE 116 mEq/L (98-107)
[2018-03-24 10:50] LABS: PHOSPHORUS 1.6 mg/dL (2.5-4.9)
[2018-03-24] MEDS: LEVETIRACETAM 500 MG in SODIUM CHLORIDE 0.9% 100 ML IV SCH ×2 (11:10→21:00)
[2018-03-24] MEDS ORDERED: LIDOCAINE HCL/EPINEPHRINE 1%-EPI 1:100,000 20 ML VIAL INFIL SCH (11:30)
[2018-03-24 12:00] VITALS: BP 159/93
[2018-03-24] MEDS ORDERED: POTASSIUM CHLORIDE INJ 40 MEQ in DEXT 5% WATER 250 ML IV NR (12:00)
[2018-03-24] MEDS: SODIUM HYPOCHLORITE 0.125% 473ML SOLUTION TOP SCH (12:58)
[2018-03-24 16:00] VITALS: BP 167/95
[2018-03-24] MEDS: VANCOMYCIN 1 G PREMIX 200 ML IV SCH (18:05)
[2018-03-24 19:58] VITALS: BP 149/89
[2018-03-24] MEDS: ENOXAPARIN 40MG/0.4ML SYR SUBCUT SCH (20:00)
[2018-03-25] VITALS: BP 144/73
[2018-03-25] MEDS: SODIUM HYPOCHLORITE 0.125% 473ML SOLUTION TOP SCH ×2 (00:22→12:46)
[2018-03-25 04:00] VITALS: BP 154/87
[2018-03-25] MEDS: POTASSIUM CHLORIDE 20MEQ/PACKET NG PRN (04:04)
[2018-03-25] MEDS: IPRATROPIUM/ALBUTEROL 0.5-3(2.5)MG/3ML NEB HHN SCH ×5 (05:04→21:28)
[2018-03-25] MEDS: VANCOMYCIN HCL 1000 MG/20 ML ORAL PO SCH ×3 (06:14→17:20)
[2018-03-25] MEDS: SODIUM CHLORIDE 0.9% INJ 3ML FLUSH IVF SCH ×3 (06:15→22:05)
[2018-03-25] MEDS: INSULIN LISPRO 100 UNITS/ML SUBCUT SCH ×4 (06:16→20:54)
[2018-03-25] MEDS: BLOOD SUGAR DIAGNOSTIC STRIP TEST SCH ×4 (06:16→20:54)
[2018-03-25 08:00] VITALS: BP_SYST 147; BP_SYST 152; BP_DIAS 61; BP_DIAS 85
[2018-03-25] MEDS: ACETYLCYSTEINE 100MG/ML 10% VIAL 4ML INH SCH ×2 (09:13→16:27)
[2018-03-25] MEDS: FAMOTIDINE 20MG/2ML VIAL IV SCH (09:45)
[2018-03-25] MEDS: ZINC SULFATE 220 MG ( 50 ) CAPSULE PO SCH (09:45)
[2018-03-25] MEDS: LEVETIRACETAM 500 MG in SODIUM CHLORIDE 0.9% 100 ML IV SCH ×2 (09:45→21:17)
[2018-03-25 12:00] VITALS: BP 164/83
[2018-03-25] MEDS: ACETAMINOPHEN 650MG/20.3ML UDC GT PRN (12:46)
[2018-03-25 16:00] VITALS: BP 144/85
[2018-03-25 20:00] VITALS: BP 142/85
[2018-03-25] MEDS ORDERED: MAGNESIUM 2 G PREMIX 50 ML IV NR (20:30)
[2018-03-25] MEDS: ENOXAPARIN 40MG/0.4ML SYR SUBCUT SCH (20:47)
[2018-03-25] MEDS ORDERED: SODIUM PHOS,M-BASIC-D-BASIC 10 MM in DEXT 5% WATER 246.6667 ML IV NR (21:00)
[2018-03-26] VITALS: BP 153/78
[2018-03-26] MEDS: IPRATROPIUM/ALBUTEROL 0.5-3(2.5)MG/3ML NEB HHN SCH ×6 (01:12→20:53)
[2018-03-26] MEDS: ACETYLCYSTEINE 100MG/ML 10% VIAL 4ML INH SCH ×3 (01:12→15:00)
[2018-03-26] MEDS: SODIUM HYPOCHLORITE 0.125% 473ML SOLUTION TOP SCH ×2 (02:03→13:00)
[2018-03-26] MEDS: DEXT 5%/0.45% NACL 1000ML 1,000 ML IV SCH ×4 (02:04→21:17)
[2018-03-26 04:00] VITALS: BP 159/88
[2018-03-26] MEDS: SODIUM CHLORIDE 0.9% INJ 3ML FLUSH IVF SCH ×3 (06:05→21:17)
[2018-03-26] MEDS: INSULIN LISPRO 100 UNITS/ML SUBCUT SCH ×4 (06:39→21:00)
[2018-03-26] MEDS: BLOOD SUGAR DIAGNOSTIC STRIP TEST SCH ×4 (06:39→21:18)
[2018-03-26 08:00] VITALS: BP 161/89
[2018-03-26] MEDS: ZINC SULFATE 220 MG ( 50 ) CAPSULE PO SCH (08:49)
[2018-03-26] MEDS: LEVETIRACETAM 500 MG in SODIUM CHLORIDE 0.9% 100 ML IV SCH ×2 (08:49→21:17)
[2018-03-26] MEDS: FAMOTIDINE 20MG/2ML VIAL IV SCH (08:49)
[2018-03-26 12:00] VITALS: BP 159/92
[2018-03-26 12:47] LABS: BASOPHILS % 0.8 % (0.0-2.0); EOSINOPHILS % 2.5 % (0.0-5.0); HEMATOCRIT. 25.4 % (42.0-52.0); HEMOGLOBIN. 8.7 g/dL (14.0-18.0); LYMPHOCYTES % 9.5 % (20.0-50.0); MEAN CORPUSCULAR HEMOGLOBIN 26.9 pg (28.0-32.0); MEAN PLATELET VOLUME 7.6 fl (7.4-10.4); NEUTROPHILS % 83.2 % (40.0-76.0); PLATELET 177 x1000/uL (130-400); RED BLOOD CELL COUNT 3.25 mill/uL (4.7-6.1); RED CELL DISTRIBUTION WIDTH 17.2 % (11.6-14.6)
[2018-03-26 12:50] LABS: CHLORIDE 109 mEq/L (98-107)
[2018-03-26 16:00] VITALS: BP 158/89
[2018-03-26 20:00] VITALS: BP 139/77
[2018-03-26] MEDS: ENOXAPARIN 40MG/0.4ML SYR SUBCUT SCH (21:17)
[2018-03-27] VITALS (7 sets, daily range): BP systolic 146–184; BP diastolic 74–98
[2018-03-27] MEDS: IPRATROPIUM/ALBUTEROL 0.5-3(2.5)MG/3ML NEB HHN SCH ×5 (00:31→20:28)
[2018-03-27] MEDS: SODIUM HYPOCHLORITE 0.125% 473ML SOLUTION TOP SCH ×2 (00:39→14:20)
[2018-03-27] MEDS: CLONIDINE 0.1MG TABLET PO PRN ×2 (00:58→20:46)
[2018-03-27] MEDS: SODIUM CHLORIDE 0.9% INJ 3ML FLUSH IVF SCH ×3 (06:01→21:20)
[2018-03-27] MEDS: INSULIN LISPRO 100 UNITS/ML SUBCUT SCH ×4 (06:01→21:00)
[2018-03-27] MEDS: BLOOD SUGAR DIAGNOSTIC STRIP TEST SCH ×4 (06:01→21:20)
[2018-03-27] MEDS ORDERED: IPRA3AMP9 HHN (09:36)
[2018-03-27] MEDS ORDERED: KEPP500 MT (09:36)
[2018-03-27] MEDS ORDERED: OR220 PO (09:36)
[2018-03-27] MEDS: LEVETIRACETAM 500 MG in SODIUM CHLORIDE 0.9% 100 ML IV SCH ×2 (09:57→21:20)
[2018-03-27] MEDS: FAMOTIDINE 20MG/2ML VIAL IV SCH (09:57)
[2018-03-27] MEDS: DEXT 5%/0.45% NACL 1000ML 1,000 ML IV SCH (09:57)
[2018-03-27] MEDS: ZINC SULFATE 220 MG ( 50 ) CAPSULE PO SCH (09:57)
[2018-03-27] MEDS: ENOXAPARIN 40MG/0.4ML SYR SUBCUT SCH (20:46)
== END 2018-03-27 23:20 | DRG 853 ==
LOC: ER 12:31 → ENRESERV 15:22 → MICUSO 15:42 → EDBEDREQ 15:47 → 8WST 03-23 20:26
PROVIDERS: ADMIT Family Medicine; ATTEND Family Medicine
PROC: 5A1955Z Respiratory Ventilation, Greater than 96 Consecutive Hours (ICD-10-PCS; principal; 2018-03-17)
PROC: 0BH18EZ Insertion of Endotracheal Airway into Trachea, Via Natural or Artificial Opening Endoscopic (ICD-10-PCS; 2018-03-17)
PROC: 02HV33Z Insertion of Infusion Device into Superior Vena Cava, Percutaneous Approach (ICD-10-PCS; 2018-03-17)
PROC: B548ZZA Ultrasonography of Superior Vena Cava, Guidance (ICD-10-PCS; 2018-03-17)
PROC: 30233N1 Transfusion of Nonautologous Red Blood Cells into Peripheral Vein, Percutaneous Approach (ICD-10-PCS; 2018-03-20)
PROC: 0QB10ZZ Excision of Sacrum, Open Approach (ICD-10-PCS; 2018-03-24)
DX: A41.9 Sepsis, unspecified organism (principal); L89.154 Pressure ulcer of sacral region, stage 4; J69.0 Pneumonitis due to inhalation of food and vomit; E43 Unspecified severe protein-calorie malnutrition; J96.01 Acute respiratory failure with hypoxia; R65.21 Severe sepsis with septic shock; G92 Toxic encephalopathy; E87.2 Acidosis; N39.0 Urinary tract infection, site not specified; A04.72 Enterocolitis due to Clostridium difficile, not specified as recurrent; Z68.1 Body mass index [BMI] 19.9 or less, adult; N17.9 Acute kidney failure, unspecified; N18.5 Chronic kidney disease, stage 5; I13.0 Hypertensive heart and chronic kidney disease with heart failure and stage 1 through stage 4 chronic kidney disease, or unspecified chronic kidney disease; D63.8 Anemia in other chronic diseases classified elsewhere; E87.6 Hypokalemia; F03.90 Unspecified dementia, unspecified severity, without behavioral disturbance, psychotic disturbance, mood disturbance, and anxiety; I25.10 Atherosclerotic heart disease of native coronary artery without angina pectoris; J44.9 Chronic obstructive pulmonary disease, unspecified; R13.10 Dysphagia, unspecified; B96.4 Proteus (mirabilis) (morganii) as the cause of diseases classified elsewhere; E78.5 Hyperlipidemia, unspecified; R31.9 Hematuria, unspecified; E11.22 Type 2 diabetes mellitus with diabetic chronic kidney disease; L89.220 Pressure ulcer of left hip, unstageable; L89.210 Pressure ulcer of right hip, unstageable; R56.9 Unspecified convulsions; E11.649 Type 2 diabetes mellitus with hypoglycemia without coma; Z86.73 Personal history of transient ischemic attack (TIA), and cerebral infarction without residual deficits; Z79.899 Other long term (current) drug therapy; Z79.82 Long term (current) use of aspirin; Z90.49 Acquired absence of other specified parts of digestive tract
CPT/HCPCS: 36415; 36600; 51702; 70450; 71045; 80048; 80053; 80061; 80202; 80305; 81003; 82140; 82375; 82550; 82553; 82805; 82962; 83036; 83605; 83690; 83735; 83880; 84100; 84134; 84439; 84443; 84478; 84484; 85025; 85379; 85610; 85730; 86850; 86900; 86920; 87015; 87040; 87045; 87077; 87086; 87186; 87427; 87449; 87493; 92610; 93005; 93306; 93970; 94002; 94003; 94640; 96365; 96366; 96368; 99291; C9113; J0330; J1265; J1650; J1815; J1953; J2370; J2543; J2704; J3370; J3475; J3480; J3490; J7030; J7050; J7060; J7608; J7620; P9016

== ENCOUNTER 2018-05-20 10:27 | Inpatient (IN) | payer MEDICARE, MEDICAID ==
[~2018-05-20] VITALS: Ht 170.2 cm; Wt 72.1 kg
[2018-05-20] VITALS (12 sets, daily range): BP systolic 50–151; BP diastolic 25–80
[~2018-05-20 10:27] MED LIST changes: +IPRA3AMP9 HHN; +KEPP500 MT; +OR220 PO
[2018-05-20] MEDS ORDERED: VANCOMYCIN 1 G PREMIX 200 ML IV ONE (10:45)
[2018-05-20] MEDS ORDERED: SODIUM CHLORIDE 0.9% 1000ML BAG (SEPSIS BOLUS) IV ONE (10:45)
[2018-05-20] MEDS ORDERED: PIPERACILLIN/TAZ 3.375G PREMIX 50 ML IV ONE (10:45)
[2018-05-20] MEDS ORDERED: SODIUM BICARBONATE 4% (2.4MEQ) 5ML VIAL IV ONE (10:58)
[2018-05-20] MEDS ORDERED: LIDOCAINE HCL 1% 20ML VIAL (Pyxis) INJ ONE (10:58)
[2018-05-20 11:07] LABS: BG BASE EXCESS -3.5 mmol/L (-2.0-2.0); BG CARBOXYHEMOGLOBIN 0.4 % (0.5-1.5); BG DEOXYHEMOGLOBIN 0.3 % (0.0-5.0); BG FRACTION INSPIRED OXYGEN 99.8; BG HCO3 ACT 20.7 mmol/L (22.0-26.0); BG METHEMOGLOBIN 0.1 % (0.0-1.5); BG OXYGEN SATURATION 99.7 % (92.0-98.5); BG OXYHEMOGLOBIN 99.2 % (94.0-97.0); BG PCO2 34.1 mmHg (35.0-45.0); BG PH 7.401 (7.350-7.450); BG PO2 484.8 mmHg (75.0-100.0); BG SAMPLE SITE LEFT BRACHIAL; BG TOTAL HEMOGLOBIN 9.5 g/dL (12.0-18.0); BG VENT MODE MASK - NRB
[2018-05-20 12:06] LABS: INR 1.1; PROTHROMBIN TIME 11.5 sec (9.1-11.1)
[2018-05-20 12:07] LABS: CHLORIDE 110 mEq/L (98-107)
[2018-05-20 12:08] LABS: HEMATOCRIT. 25.4 % (42.0-52.0); HEMOGLOBIN. 8.4 g/dL (14.0-18.0); MEAN CORPUSCULAR HEMOGLOBIN 26.4 pg (28.0-32.0); MEAN PLATELET VOLUME 10.8 fl (7.4-10.4); PLATELET 142 x1000/uL (130-400); RED BLOOD CELL COUNT 3.17 mill/uL (4.7-6.1); RED CELL DISTRIBUTION WIDTH 19.8 % (11.6-14.6)
[2018-05-20] MEDS ORDERED: INSULIN REGULAR (HUMULIN R) 300UNITS/3ML IV ONE (12:30)
[2018-05-20] MEDS ORDERED: NOREPINEPHRINE 4 MG in DEXT 5% WATER 250 ML IV STA (12:30)
[2018-05-20 12:49] LABS: PLATELET ESTIMATE NORMAL
[2018-05-20] MEDS ORDERED: NOREPINEPHRINE 4 MG in DEXT 5% WATER 250 ML IV PRN (13:00)
[2018-05-20] MEDS ORDERED: NOREPINEPHRINE 4MG/250ML PMX 250 ML IV ONE ×2 (13:00→22:15)
[2018-05-20] MEDS ORDERED: TRAMADOL 50MG TABLET PO PRN (13:45)
[2018-05-20] MEDS ORDERED: DOCUSATE SODIUM 100MG CAPSULE PO PRN (13:45)
[2018-05-20] MEDS ORDERED: NA PHOS,M-B/NA PHOS,DI-BA ENEMA 118ML PR PRN (13:45)
[2018-05-20] MEDS ORDERED: GUAIFENESIN 200MG/10ML SUGAR FREE UDC PO PRN (13:45)
[2018-05-20] MEDS ORDERED: IPRATROPIUM/ALBUTEROL 0.5-3(2.5)MG/3ML NEB INH PRN (13:45)
[2018-05-20] MEDS ORDERED: NITROGLYCERIN 0.4MG TABLET SL SL PRN (13:45)
[2018-05-20] MEDS ORDERED: CLONIDINE 0.1MG TABLET PO PRN (13:45)
[2018-05-20] MEDS ORDERED: ACETAMINOPHEN 325MG TABLET PO PRN (13:45)
[2018-05-20] MEDS ORDERED: MAGNESIUM/ALUMINUM HYDROXIDE/SIMETHICONE 30ML UDC PO PRN (13:45)
[2018-05-20] MEDS ORDERED: ONDANSETRON HCL 4MG/2ML INJ IV PRN (13:45)
[2018-05-20 16:43] LABS: CREATINE KINASE MB FRACTION 4.6 ng/mL (0.5-3.6)
[2018-05-20] MEDS ORDERED: NOREPINEPHRINE 4MG/250ML PMX 250 ML IV NR (17:15)
[2018-05-20 19:28] LABS: CLARITY URINE TURBID (CLEAR); COLOR URINE DARK YELLOW (YELLOW); KETONES URINE NEGATIVE (NEGATIVE); LEUKOCYTE ESTERASE URINE 3+ (NEGATIVE); NITRITE URINE NEGATIVE (NEGATIVE); OCCULT BLOOD URINE 3+ (NEGATIVE); PROTEIN URINE 1+ (NEGATIVE); SPECIFIC GRAVITY URINE 1.018 (1.005-1.030); UROBILINOGEN URINE 0.2 E.U./dL (0.2-1.0)
[2018-05-20] MEDS ORDERED: LEVETIRACETAM 500MG PREMIX 100 ML IV SCH (21:00)
[2018-05-20] MEDS ORDERED: ZOLPIDEM TARTRATE 5MG TABLET PO PRN (22:00)
[2018-05-20] MEDS: BLOOD SUGAR DIAGNOSTIC STRIP TEST SCH (22:00)
[2018-05-20] MEDS ORDERED: SODIUM CHLORIDE 0.9% 2,000 ML IV ONE (22:15)
[2018-05-20] MEDS ORDERED: SODIUM CHLORIDE 0.9% 1,000 ML IV NR (22:15)
[2018-05-20] MEDS ORDERED: NOREPINEPHRINE 4 MG in DEXT 5% WATER 246 ML IV PRN (22:15)
[2018-05-20] MEDS: INSULIN LISPRO 100 UNITS/ML SUBCUT SCH (22:59)
[2018-05-20] MEDS: ASCORBIC ACID 500 MG TABLET PO SCH (22:59)
[2018-05-20] MEDS: FAMOTIDINE 20MG TABLET PO SCH (22:59)
[2018-05-20] MEDS: SODIUM CHLORIDE 0.9% 1,000 ML IV SCH (23:00)
[2018-05-20] MEDS: ENOXAPARIN 30MG/0.3ML SYR SUBCUT SCH (23:00)
[2018-05-20] MEDS: INSULIN GLARGINE UD 100 UNITS/ML SYR SUBCUT SCH (23:02)
[2018-05-20] MEDS: LEVETIRACETAM 500MG in SODIUM CHLORIDE 0.9% 100ML IV SCH (23:03)
[2018-05-20] MEDS ORDERED: LEVOFLOXACIN 500MG PREMIX 100 ML IV SCH (23:30)
[2018-05-21] VITALS (98 sets, daily range): BP systolic 65–154; BP diastolic 48–121
[2018-05-21 01:19] LABS: CREATINE KINASE MB FRACTION 4.6 ng/mL (0.5-3.6)
[2018-05-21] MEDS: NOREPINEPHRINE 16 MG in DEXT 5% WATER 234 ML IV PRN ×3 (02:39→22:22)
[2018-05-21] MEDS: SODIUM CHLORIDE 0.9% 1,000 ML IV SCH ×4 (04:40→23:56)
[2018-05-21] MEDS: BLOOD SUGAR DIAGNOSTIC STRIP TEST SCH ×4 (07:03→21:06)
[2018-05-21] MEDS: INSULIN LISPRO 100 UNITS/ML SUBCUT SCH ×4 (07:09→21:09)
[2018-05-21] MEDS: LEVETIRACETAM 500MG in SODIUM CHLORIDE 0.9% 100ML IV SCH ×2 (08:04→21:07)
[2018-05-21] MEDS: ZINC SULFATE 220 MG ( 50 ) CAPSULE PO SCH (08:04)
[2018-05-21] MEDS: ASCORBIC ACID 500 MG TABLET PO SCH ×2 (08:04→21:07)
[2018-05-21] MEDS: ASPIRIN 325MG EC TABLET PO SCH (08:04)
[2018-05-21 12:16] LABS: HEMATOCRIT. 29.1 % (42.0-52.0); HEMOGLOBIN. 9.4 g/dL (14.0-18.0); MEAN CORPUSCULAR HEMOGLOBIN 26.1 pg (28.0-32.0); MEAN CORPUSCULAR VOLUME 80.6 fL (80.0-94.0); PLATELET 142 x1000/uL (130-400); RED BLOOD CELL COUNT 3.61 mill/uL (4.7-6.1)
[2018-05-21 12:19] LABS: CHLORIDE 112 mEq/L (98-107)
[2018-05-21 12:40] LABS: PLATELET ESTIMATE NORMAL
[2018-05-21] MEDS: MEROPENEM 1,000 MG in SODIUM CHLORIDE 0.9% 100 ML IV SCH ×2 (14:57→23:18)
[2018-05-21] MEDS ORDERED: VANCOMYCIN 750 MG PREMIX 150 ML IV SCH (15:00)
[2018-05-21] MEDS: ENOXAPARIN 30MG/0.3ML SYR SUBCUT SCH (21:06)
[2018-05-21] MEDS: FAMOTIDINE 20MG TABLET PO SCH (21:07)
[2018-05-21] MEDS: INSULIN GLARGINE UD 100 UNITS/ML SYR SUBCUT SCH (23:15)
[2018-05-22] VITALS (78 sets, daily range): BP systolic 100–133; BP diastolic 56–77
[2018-05-22] MEDS: INSULIN LISPRO 100 UNITS/ML SUBCUT SCH ×4 (06:25→21:00)
[2018-05-22] MEDS: BLOOD SUGAR DIAGNOSTIC STRIP TEST SCH ×4 (06:25→21:00)
[2018-05-22] MEDS: SODIUM CHLORIDE 0.9% 1,000 ML IV SCH (07:07)
[2018-05-22] MEDS: ZINC SULFATE 220 MG ( 50 ) CAPSULE PO SCH (08:59)
[2018-05-22] MEDS: ASCORBIC ACID 500 MG TABLET PO SCH ×2 (08:59→21:00)
[2018-05-22] MEDS: ASPIRIN 325MG EC TABLET PO SCH (08:59)
[2018-05-22] MEDS: LEVETIRACETAM 500MG in SODIUM CHLORIDE 0.9% 100ML IV SCH ×2 (08:59→21:59)
[2018-05-22] MEDS: MEROPENEM 1,000 MG in SODIUM CHLORIDE 0.9% 100 ML IV SCH ×2 (08:59→21:59)
[2018-05-22 09:31] LABS: BG BASE EXCESS -6.4 mmol/L (-2.0-2.0); BG DEOXYHEMOGLOBIN 1.5 % (0.0-5.0); BG FRACTION INSPIRED OXYGEN 32; BG HCO3 ACT 16.6 mmol/L (22.0-26.0); BG OXYGEN SATURATION 98.5 % (92.0-98.5); BG OXYHEMOGLOBIN 97.5 % (94.0-97.0); BG PCO2 24.6 mmHg (35.0-45.0); BG PH 7.446 (7.350-7.450); BG PO2 137.8 mmHg (75.0-100.0); BG SAMPLE SITE RIGHT RADIAL; BG TOTAL HEMOGLOBIN 8.7 g/dL (12.0-18.0); BG VENT MODE NASAL CANNULA
[2018-05-22] MEDS: VANCOMYCIN 750 MG PREMIX 150 ML IV SCH (11:35)
[2018-05-22] MEDS ORDERED: LIDOCAINE HCL/EPINEPHRINE 1%-EPI 1:100,000 20 ML VIAL INFIL NR (12:00)
[2018-05-22 12:29] LABS: HEMATOCRIT. 24.9 % (42.0-52.0); HEMOGLOBIN. 8.3 g/dL (14.0-18.0); MEAN CORPUSCULAR HEMOGLOBIN 26.1 pg (28.0-32.0); MEAN CORPUSCULAR VOLUME 78.6 fL (80.0-94.0); MEAN PLATELET VOLUME 10.4 fl (7.4-10.4); PLATELET 142 x1000/uL (130-400); RED BLOOD CELL COUNT 3.17 mill/uL (4.7-6.1)
[2018-05-22] MEDS ORDERED: ALBUMIN HUMAN 25GM/100ML (25%) IV NR (13:00)
[2018-05-22] MEDS: SODIUM HYPOCHLORITE 0.125% 473ML SOLUTION TOP SCH ×2 (13:40→22:35)
[2018-05-22 14:06] LABS: PLATELET ESTIMATE NORMAL
[2018-05-22] MEDS: SODIUM BICARBONATE 50 MEQ in SODIUM CHLORIDE 0.45% 1,000 ML IV SCH ×2 (16:06→21:00)
[2018-05-22] MEDS ORDERED: POTASSIUM PHOS,M-BASIC-D-BASIC 15 MMOL in DEXT 5% WATER 245 ML IV NR (16:30)
[2018-05-22] MEDS: ENOXAPARIN 30MG/0.3ML SYR SUBCUT SCH (21:00)
[2018-05-22] MEDS: FAMOTIDINE 20MG TABLET PO SCH (21:00)
[2018-05-22] MEDS: INSULIN GLARGINE UD 100 UNITS/ML SYR SUBCUT SCH (22:00)
[2018-05-23] VITALS (78 sets, daily range): BP systolic 90–147; BP diastolic 53–86
[2018-05-23] MEDS: SODIUM BICARBONATE 50 MEQ in SODIUM CHLORIDE 0.45% 1,000 ML IV SCH ×2 (00:28→08:31)
[2018-05-23 05:49] LABS: CHLORIDE 119 mEq/L (98-107)
[2018-05-23 05:52] LABS: HEMATOCRIT. 27.3 % (42.0-52.0); HEMOGLOBIN. 8.9 g/dL (14.0-18.0); MEAN CORPUSCULAR HEMOGLOBIN 25.9 pg (28.0-32.0); MEAN CORPUSCULAR VOLUME 79.6 fL (80.0-94.0); MEAN PLATELET VOLUME 10.8 fl (7.4-10.4); PLATELET 125 x1000/uL (130-400); RED BLOOD CELL COUNT 3.43 mill/uL (4.7-6.1); RED CELL DISTRIBUTION WIDTH 20.4 % (11.6-14.6)
[2018-05-23 05:56] LABS: PHOSPHORUS 3.6 mg/dL (2.5-4.9)
[2018-05-23] MEDS: INSULIN LISPRO 100 UNITS/ML SUBCUT SCH ×4 (07:00→21:00)
[2018-05-23] MEDS: BLOOD SUGAR DIAGNOSTIC STRIP TEST SCH ×4 (07:17→21:00)
[2018-05-23] MEDS: DEXTROSE 50% WATER 50ML SYRINGE IV PRN (07:19)
[2018-05-23 07:58] LABS: BG CARBOXYHEMOGLOBIN 1.1 % (0.5-1.5); BG DEOXYHEMOGLOBIN 1.2 % (0.0-5.0); BG FRACTION INSPIRED OXYGEN 32; BG HCO3 ACT 16.7 mmol/L (22.0-26.0); BG METHEMOGLOBIN 0.3 % (0.0-1.5); BG OXYGEN SATURATION 98.8 % (92.0-98.5); BG OXYHEMOGLOBIN 97.4 % (94.0-97.0); BG PCO2 23.7 mmHg (35.0-45.0); BG PH 7.467 (7.350-7.450); BG PO2 157.5 mmHg (75.0-100.0); BG SAMPLE SITE RIGHT RADIAL; BG TOTAL HEMOGLOBIN 8.2 g/dL (12.0-18.0); BG VENT MODE NASAL CANNULA
[2018-05-23] MEDS: ASCORBIC ACID 500 MG TABLET PO SCH ×2 (08:12→22:33)
[2018-05-23] MEDS: VANCOMYCIN 750 MG PREMIX 150 ML IV SCH (08:12)
[2018-05-23] MEDS: ZINC SULFATE 220 MG ( 50 ) CAPSULE PO SCH (08:12)
[2018-05-23] MEDS: ASPIRIN 325MG EC TABLET PO SCH (08:12)
[2018-05-23] MEDS: SODIUM HYPOCHLORITE 0.125% 473ML SOLUTION TOP SCH ×2 (08:31→21:00)
[2018-05-23] MEDS: MEROPENEM 1,000 MG in SODIUM CHLORIDE 0.9% 100 ML IV SCH ×2 (08:37→22:46)
[2018-05-23 09:00] LABS: PLATELET ESTIMATE SLIGHTLY DECREASED
[2018-05-23] MEDS: LEVETIRACETAM 500MG in SODIUM CHLORIDE 0.9% 100ML IV SCH ×2 (09:08→22:47)
[2018-05-23] MEDS: DEXT 5%/0.45% NACL 1000ML 1,000 ML IV SCH ×3 (09:09→22:05)
[2018-05-23 11:57] LABS: BG BASE EXCESS -4.8 mmol/L (-2.0-2.0); BG CARBOXYHEMOGLOBIN 1.9 % (0.5-1.5); BG DEOXYHEMOGLOBIN 1.1 % (0.0-5.0); BG FRACTION INSPIRED OXYGEN 24; BG HCO3 ACT 18.9 mmol/L (22.0-26.0); BG METHEMOGLOBIN 0.3 % (0.0-1.5); BG OXYGEN SATURATION 98.9 % (92.0-98.5); BG OXYHEMOGLOBIN 96.7 % (94.0-97.0); BG PCO2 29.6 mmHg (35.0-45.0); BG PH 7.424 (7.350-7.450); BG PO2 131.9 mmHg (75.0-100.0); BG SAMPLE SITE RIGHT RADIAL; BG TOTAL HEMOGLOBIN 7.5 g/dL (12.0-18.0); BG VENT MODE NASAL CANNULA
[2018-05-23] MEDS ORDERED: HYDROCODONE/ACETAMINOPHEN 5/325MG TABLET PO PRN (12:00)
[2018-05-23] MEDS: HYDROMORPHONE HCL/PF 2MG/ML CPJ IV PRN (12:28)
[2018-05-23] MEDS: INSULIN GLARGINE UD 100 UNITS/ML SYR SUBCUT SCH ×2 (21:00→23:50)
[2018-05-23] MEDS: ENOXAPARIN 30MG/0.3ML SYR SUBCUT SCH ×2 (21:00→22:38)
[2018-05-23] MEDS: FAMOTIDINE 20MG TABLET PO SCH (21:00)
[2018-05-24] VITALS (89 sets, daily range): BP systolic 95–154; BP diastolic 54–104
[2018-05-24 05:32] LABS: CHLORIDE 118 mEq/L (98-107)
[2018-05-24 05:33] LABS: HEMOGLOBIN. 8.2 g/dL (14.0-18.0); MEAN CORPUSCULAR VOLUME 79.2 fL (80.0-94.0); MEAN PLATELET VOLUME 10.6 fl (7.4-10.4); PLATELET 120 x1000/uL (130-400); RED BLOOD CELL COUNT 3.16 mill/uL (4.7-6.1); RED CELL DISTRIBUTION WIDTH 20.3 % (11.6-14.6)
[2018-05-24 05:44] LABS: PHOSPHORUS 3.8 mg/dL (2.5-4.9)
[2018-05-24] MEDS: INSULIN LISPRO 100 UNITS/ML SUBCUT SCH ×4 (06:40→20:20)
[2018-05-24] MEDS: DEXT 5%/0.45% NACL 1000ML 1,000 ML IV SCH ×3 (07:40→18:02)
[2018-05-24] MEDS ORDERED: POTASSIUM CHLORIDE INJ 40 MEQ in DEXT 5% WATER 250 ML IV SCH (08:00)
[2018-05-24] MEDS: LEVETIRACETAM 500MG in SODIUM CHLORIDE 0.9% 100ML IV SCH ×2 (08:03→21:08)
[2018-05-24] MEDS: VANCOMYCIN 750 MG PREMIX 150 ML IV SCH (08:11)
[2018-05-24] MEDS: ASCORBIC ACID 500 MG TABLET PO SCH ×2 (08:12→20:19)
[2018-05-24] MEDS: ASPIRIN 325MG EC TABLET PO SCH (08:12)
[2018-05-24] MEDS: ZINC SULFATE 220 MG ( 50 ) CAPSULE PO SCH (08:12)
[2018-05-24] MEDS: SODIUM HYPOCHLORITE 0.125% 473ML SOLUTION TOP SCH ×2 (08:17→20:20)
[2018-05-24] MEDS: MEROPENEM 1,000 MG in SODIUM CHLORIDE 0.9% 100 ML IV SCH ×2 (08:17→20:19)
[2018-05-24 09:38] LABS: PLATELET ESTIMATE SLIGHTLY DECREASED
[2018-05-24] MEDS ORDERED: AMLO5TAB4 MT (09:46)
[2018-05-24] MEDS ORDERED: MEMA1CAP3 MT (09:49)
[2018-05-24] MEDS ORDERED: ALFU10TA9 MT (09:49)
[2018-05-24] MEDS ORDERED: APIX2.5T PO (09:49)
[2018-05-24] MEDS ORDERED: CHOL100053 PO (09:52)
[2018-05-24] MEDS ORDERED: BRIM.2 EACHEYE (09:52)
[2018-05-24] MEDS ORDERED: BIMA2.5D4 EACHEYE (09:53)
[2018-05-24] MEDS ORDERED: DORZ10DR8 EACHEYE (09:54)
[2018-05-24] MEDS: BLOOD SUGAR DIAGNOSTIC STRIP TEST SCH ×3 (11:52→20:14)
[2018-05-24] MEDS ORDERED: PNEUMOCOCCAL 23-VAL P-SAC VAC 0.5 ML IM ONE (19:45)
[2018-05-25] VITALS (18 sets, daily range): BP systolic 97–141; BP diastolic 48–77
[2018-05-25] MEDS: HYDROMORPHONE HCL/PF 2MG/ML CPJ IV PRN (00:19)
[2018-05-25] MEDS: BLOOD SUGAR DIAGNOSTIC STRIP TEST SCH ×3 (07:30→17:28)
[2018-05-25] MEDS: MEROPENEM 1,000 MG in SODIUM CHLORIDE 0.9% 100 ML IV SCH ×2 (08:16→21:15)
[2018-05-25] MEDS: VANCOMYCIN 750 MG PREMIX 150 ML IV SCH (08:16)
[2018-05-25] MEDS: DEXT 5%/0.45% NACL 1000ML 1,000 ML IV SCH ×3 (08:17→21:40)
[2018-05-25] MEDS: LEVETIRACETAM 500MG in SODIUM CHLORIDE 0.9% 100ML IV SCH ×2 (09:47→21:15)
[2018-05-25] MEDS: SODIUM HYPOCHLORITE 0.125% 473ML SOLUTION TOP SCH ×2 (09:48→21:24)
[2018-05-25] MEDS: ASCORBIC ACID 500 MG TABLET PO SCH ×2 (09:48→21:16)
[2018-05-25] MEDS: ZINC SULFATE 220 MG ( 50 ) CAPSULE PO SCH (09:48)
[2018-05-25] MEDS: ASPIRIN 325MG EC TABLET PO SCH (09:48)
[2018-05-25] MEDS: INSULIN LISPRO 100 UNITS/ML SUBCUT SCH ×3 (09:49→18:38)
[2018-05-25 12:35] LABS: HEMATOCRIT. 24.6 % (42.0-52.0); MEAN CORPUSCULAR HEMOGLOBIN 25.8 pg (28.0-32.0); MEAN CORPUSCULAR VOLUME 79.2 fL (80.0-94.0); MEAN PLATELET VOLUME 10.2 fl (7.4-10.4); PLATELET 139 x1000/uL (130-400); RED CELL DISTRIBUTION WIDTH 19.8 % (11.6-14.6)
[2018-05-25 13:43] LABS: PLATELET ESTIMATE NORMAL
[2018-05-25 13:47] LABS: CHLORIDE 118 mEq/L (98-107)
[2018-05-25 13:52] LABS: PHOSPHORUS 3.7 mg/dL (2.5-4.9)
[2018-05-25] MEDS: ENOXAPARIN 40MG/0.4ML SYR SUBCUT SCH (21:16)
[2018-05-25] MEDS: FAMOTIDINE 20MG TABLET PO SCH (21:16)
[2018-05-26] VITALS (11 sets, daily range): BP systolic 110–137; BP diastolic 54–91
[2018-05-26] MEDS: INSULIN GLARGINE UD 100 UNITS/ML SYR SUBCUT SCH ×2 (01:07→23:30)
[2018-05-26] MEDS: INSULIN LISPRO 100 UNITS/ML SUBCUT SCH ×4 (05:42→17:12)
[2018-05-26] MEDS: BLOOD SUGAR DIAGNOSTIC STRIP TEST SCH ×4 (05:42→17:12)
[2018-05-26 06:50] LABS: HEMATOCRIT. 24.5 % (42.0-52.0); HEMOGLOBIN. 7.9 g/dL (14.0-18.0); MEAN CORPUSCULAR HEMOGLOBIN 25.6 pg (28.0-32.0); MEAN CORPUSCULAR VOLUME 79.3 fL (80.0-94.0); MEAN PLATELET VOLUME 9.6 fl (7.4-10.4); PLATELET 146 x1000/uL (130-400); RED BLOOD CELL COUNT 3.09 mill/uL (4.7-6.1); RED CELL DISTRIBUTION WIDTH 20.3 % (11.6-14.6)
[2018-05-26] MEDS: ZINC SULFATE 220 MG ( 50 ) CAPSULE PO SCH (09:00)
[2018-05-26] MEDS: ASCORBIC ACID 500 MG TABLET PO SCH ×2 (09:01→22:12)
[2018-05-26] MEDS: LEVETIRACETAM 500MG in SODIUM CHLORIDE 0.9% 100ML IV SCH ×2 (09:01→22:12)
[2018-05-26] MEDS: MEROPENEM 1,000 MG in SODIUM CHLORIDE 0.9% 100 ML IV SCH ×2 (09:01→17:19)
[2018-05-26] MEDS: FAMOTIDINE 20MG TABLET PO SCH ×2 (09:01→22:12)
[2018-05-26] MEDS: ASPIRIN 325MG EC TABLET PO SCH (09:01)
[2018-05-26] MEDS: VANCOMYCIN 750 MG PREMIX 150 ML IV SCH (09:01)
[2018-05-26] MEDS: SODIUM HYPOCHLORITE 0.125% 473ML SOLUTION TOP SCH ×2 (09:02→22:13)
[2018-05-26 11:15] LABS: CHLORIDE 118 mEq/L (98-107)
[2018-05-26 11:25] LABS: PHOSPHORUS 4.7 mg/dL (2.5-4.9)
[2018-05-26] MEDS ORDERED: LIDOCAINE HCL/EPINEPHRINE 1%-EPI 1:100,000 30 ML VIAL INFIL NR (12:00)
[2018-05-26] MEDS ORDERED: LIDOCAINE HCL/EPINEPHRINE 1%-EPI 1:100,000 20 ML VIAL INFIL NR (13:00)
[2018-05-26 13:54] LABS: PLATELET ESTIMATE NORMAL
[2018-05-26] MEDS: ENOXAPARIN 40MG/0.4ML SYR SUBCUT SCH (22:13)
[2018-05-26] MEDS: DEXTROSE 50% WATER 50ML SYRINGE IV PRN (23:57)
[2018-05-27] VITALS (12 sets, daily range): BP systolic 104–143; BP diastolic 63–85
[2018-05-27] MEDS: MEROPENEM 1,000 MG in SODIUM CHLORIDE 0.9% 100 ML IV SCH ×3 (01:49→17:21)
[2018-05-27] MEDS: ASPIRIN 325MG EC TABLET PO SCH (09:30)
[2018-05-27] MEDS: LEVETIRACETAM 500MG in SODIUM CHLORIDE 0.9% 100ML IV SCH ×2 (09:30→21:15)
[2018-05-27] MEDS: ZINC SULFATE 220 MG ( 50 ) CAPSULE PO SCH (09:30)
[2018-05-27] MEDS: VANCOMYCIN 750 MG PREMIX 150 ML IV SCH (09:31)
[2018-05-27] MEDS: FAMOTIDINE 20MG TABLET PO SCH ×2 (09:31→21:14)
[2018-05-27] MEDS: ASCORBIC ACID 500 MG TABLET PO SCH ×2 (09:31→21:14)
[2018-05-27] MEDS: SODIUM HYPOCHLORITE 0.125% 473ML SOLUTION TOP SCH ×2 (09:32→21:14)
[2018-05-27 11:23] LABS: HEMATOCRIT. 25.3 % (42.0-52.0); HEMOGLOBIN. 8.2 g/dL (14.0-18.0); MEAN CORPUSCULAR HEMOGLOBIN 25.8 pg (28.0-32.0); MEAN CORPUSCULAR VOLUME 79.7 fL (80.0-94.0); MEAN PLATELET VOLUME 9.5 fl (7.4-10.4); PLATELET 175 x1000/uL (130-400); RED BLOOD CELL COUNT 3.18 mill/uL (4.7-6.1); RED CELL DISTRIBUTION WIDTH 19.7 % (11.6-14.6)
[2018-05-27] MEDS: BLOOD SUGAR DIAGNOSTIC STRIP TEST SCH ×4 (11:27→23:39)
[2018-05-27] MEDS: INSULIN LISPRO 100 UNITS/ML SUBCUT SCH ×4 (11:28→23:39)
[2018-05-27 12:00] LABS: CHLORIDE 119 mEq/L (98-107)
[2018-05-27 12:10] LABS: PHOSPHORUS 5.3 mg/dL (2.5-4.9)
[2018-05-27 14:16] LABS: PLATELET ESTIMATE NORMAL
[2018-05-27] MEDS: ENOXAPARIN 40MG/0.4ML SYR SUBCUT SCH (21:14)
[2018-05-27] MEDS: INSULIN GLARGINE UD 100 UNITS/ML SYR SUBCUT SCH (23:38)
[2018-05-28] VITALS (17 sets, daily range): BP systolic 107–146; BP diastolic 65–97
[2018-05-28] MEDS: MEROPENEM 1,000 MG in SODIUM CHLORIDE 0.9% 100 ML IV SCH ×3 (01:55→22:01)
[2018-05-28] MEDS: INSULIN LISPRO 100 UNITS/ML SUBCUT SCH ×3 (06:00→18:00)
[2018-05-28] MEDS: DEXTROSE 50% WATER 50ML SYRINGE IV PRN ×2 (06:41→18:11)
[2018-05-28] MEDS: BLOOD SUGAR DIAGNOSTIC STRIP TEST SCH ×3 (06:41→18:04)
[2018-05-28 07:43] LABS: MEAN CORPUSCULAR HEMOGLOBIN 25.4 pg (28.0-32.0); MEAN CORPUSCULAR VOLUME 79.9 fL (80.0-94.0); MEAN PLATELET VOLUME 9.3 fl (7.4-10.4); PLATELET 161 x1000/uL (130-400); RED BLOOD CELL COUNT 2.67 mill/uL (4.7-6.1); RED CELL DISTRIBUTION WIDTH 20.5 % (11.6-14.6)
[2018-05-28 07:51] LABS: HEMOGLOBIN. 6.8 g/dL (14.0-18.0)
[2018-05-28 07:52] LABS: HEMATOCRIT. 21.4 % (42.0-52.0)
[2018-05-28] MEDS: ASPIRIN 325MG EC TABLET PO SCH (08:02)
[2018-05-28] MEDS: ASCORBIC ACID 500 MG TABLET PO SCH ×2 (08:27→22:01)
[2018-05-28] MEDS: ZINC SULFATE 220 MG ( 50 ) CAPSULE PO SCH (08:27)
[2018-05-28] MEDS: LEVETIRACETAM 500MG in SODIUM CHLORIDE 0.9% 100ML IV SCH ×2 (08:27→22:01)
[2018-05-28] MEDS: FAMOTIDINE 20MG TABLET PO SCH ×2 (08:27→22:01)
[2018-05-28 08:32] LABS: CHLORIDE 120 mEq/L (98-107)
[2018-05-28] MEDS: SODIUM HYPOCHLORITE 0.125% 473ML SOLUTION TOP SCH ×2 (08:38→22:02)
[2018-05-28 08:44] LABS: PHOSPHORUS 5.5 mg/dL (2.5-4.9)
[2018-05-28] MEDS: VANCOMYCIN 750 MG PREMIX 150 ML IV SCH (09:30)
[2018-05-28 11:53] LABS: PLATELET ESTIMATE NORMAL
[2018-05-28 18:57] LABS: HEMATOCRIT 28.3 % (42.0-52.0); HEMOGLOBIN 9.3 g/dL (14.0-18.0)
[2018-05-28] MEDS ORDERED: INSULIN GLARGINE UD 100 UNITS/ML SYR SUBCUT SCH ×2 (22:00)
[2018-05-28] MEDS: ENOXAPARIN 40MG/0.4ML SYR SUBCUT SCH (22:02)
[2018-05-29] VITALS (12 sets, daily range): BP systolic 101–148; BP diastolic 55–83
[2018-05-29] MEDS: DEXTROSE 50% WATER 50ML SYRINGE IV PRN ×2 (00:18→06:44)
[2018-05-29] MEDS: BLOOD SUGAR DIAGNOSTIC STRIP TEST SCH ×4 (00:18→17:02)
[2018-05-29] MEDS: MEROPENEM 1,000 MG in SODIUM CHLORIDE 0.9% 100 ML IV SCH ×3 (04:22→20:20)
[2018-05-29] MEDS: INSULIN LISPRO 100 UNITS/ML SUBCUT SCH ×2 (06:00)
[2018-05-29 06:35] LABS: CHLORIDE 119 mEq/L (98-107)
[2018-05-29 06:37] LABS: HEMATOCRIT. 33.5 % (42.0-52.0); MEAN CORPUSCULAR HEMOGLOBIN 26.8 pg (28.0-32.0); MEAN CORPUSCULAR VOLUME 82.3 fL (80.0-94.0); MEAN PLATELET VOLUME 8.8 fl (7.4-10.4); PLATELET 205 x1000/uL (130-400); RED BLOOD CELL COUNT 4.07 mill/uL (4.7-6.1); RED CELL DISTRIBUTION WIDTH 19.8 % (11.6-14.6)
[2018-05-29 06:40] LABS: PHOSPHORUS 5.5 mg/dL (2.5-4.9)
[2018-05-29 07:05] LABS: HEMOGLOBIN. 10.9 g/dL (14.0-18.0)
[2018-05-29] MEDS: ASCORBIC ACID 500 MG TABLET PO SCH ×2 (09:21→21:42)
[2018-05-29] MEDS: ZINC SULFATE 220 MG ( 50 ) CAPSULE PO SCH (09:21)
[2018-05-29] MEDS: LEVETIRACETAM 500MG in SODIUM CHLORIDE 0.9% 100ML IV SCH ×2 (09:21→21:42)
[2018-05-29] MEDS: SODIUM HYPOCHLORITE 0.125% 473ML SOLUTION TOP SCH ×2 (09:23→21:42)
[2018-05-29] MEDS: FAMOTIDINE 20MG TABLET PO SCH ×2 (09:23→21:42)
[2018-05-29] MEDS ORDERED: LIDOCAINE HCL/EPINEPHRINE 1%-EPI 1:100,000 20 ML VIAL INFIL NR (10:30)
[2018-05-29] MEDS ORDERED: MORPHINE SULFATE 4 MG/ML CPJ (NOT FOR IM USE) IV ONE (11:20)
[2018-05-29] MEDS: VANCOMYCIN 750 MG PREMIX 150 ML IV SCH (11:21)
[2018-05-29] MEDS ORDERED: MORPHINE SULFATE 4 MG/ML CPJ (NOT FOR IM USE) IV PRN (12:15)
[2018-05-29 17:30] LABS: PLATELET ESTIMATE NORMAL
[2018-05-29] MEDS: ENOXAPARIN 40MG/0.4ML SYR SUBCUT SCH (21:00)
[2018-05-30] VITALS (12 sets, daily range): BP systolic 92–143; BP diastolic 40–74
[2018-05-30] MEDS: ENOXAPARIN 40MG/0.4ML SYR SUBCUT SCH (00:04)
[2018-05-30] MEDS: BLOOD SUGAR DIAGNOSTIC STRIP TEST SCH ×4 (00:13→18:09)
[2018-05-30] MEDS: MEROPENEM 1,000 MG in SODIUM CHLORIDE 0.9% 100 ML IV SCH ×2 (03:59→11:50)
[2018-05-30 07:13] LABS: CHLORIDE 119 mEq/L (98-107)
[2018-05-30 07:28] LABS: PHOSPHORUS 5.6 mg/dL (2.5-4.9)
[2018-05-30 07:57] LABS: MEAN CORPUSCULAR HEMOGLOBIN 27.7 pg (28.0-32.0); MEAN CORPUSCULAR VOLUME 81.7 fL (80.0-94.0); MEAN PLATELET VOLUME 9.1 fl (7.4-10.4); PLATELET 134 x1000/uL (130-400); RED BLOOD CELL COUNT 2.86 mill/uL (4.7-6.1); RED CELL DISTRIBUTION WIDTH 19.6 % (11.6-14.6)
[2018-05-30] MEDS: ZINC SULFATE 220 MG ( 50 ) CAPSULE PO SCH (08:19)
[2018-05-30] MEDS: LEVETIRACETAM 500MG in SODIUM CHLORIDE 0.9% 100ML IV SCH (08:19)
[2018-05-30] MEDS: ASPIRIN 325MG EC TABLET PO SCH (08:19)
[2018-05-30] MEDS: VANCOMYCIN 750 MG PREMIX 150 ML IV SCH (08:19)
[2018-05-30] MEDS: SODIUM HYPOCHLORITE 0.125% 473ML SOLUTION TOP SCH (08:20)
[2018-05-30] MEDS: FAMOTIDINE 20MG TABLET PO SCH (08:20)
[2018-05-30] MEDS: ASCORBIC ACID 500 MG TABLET PO SCH (08:20)
[2018-05-30 09:01] LABS: HEMATOCRIT. 23.3 % (42.0-52.0); HEMOGLOBIN. 7.9 g/dL (14.0-18.0)
[2018-05-30] MEDS ORDERED: SODIUM POLYSTYRENE SULFONATE 15 G/60 ML BOT GT NR (11:00)
[2018-05-30 15:53] LABS: PLATELET ESTIMATE NORMAL
== END 2018-05-30 21:46 | DRG 853 ==
LOC: ER 10:34 → EDBEDREQSVC 12:40 → MICUSO 13:39 → EDBEDREQ 13:46 → SUPCPDRO 13:49 → ENRESERV 19:56 → 5EST 05-25 02:00
PROVIDERS: ADMIT Emergency Medicine; ATTEND Emergency Medicine
PROC: 02HV33Z Insertion of Infusion Device into Superior Vena Cava, Percutaneous Approach (ICD-10-PCS; 2018-05-20)
PROC: B548ZZA Ultrasonography of Superior Vena Cava, Guidance (ICD-10-PCS; 2018-05-20)
PROC: 0QB10ZZ Excision of Sacrum, Open Approach (ICD-10-PCS; 2018-05-23)
PROC: 0QB10ZZ Excision of Sacrum, Open Approach (ICD-10-PCS; principal; 2018-05-27)
PROC: 30233N1 Transfusion of Nonautologous Red Blood Cells into Peripheral Vein, Percutaneous Approach (ICD-10-PCS; 2018-05-28)
PROC: 0QB10ZZ Excision of Sacrum, Open Approach (ICD-10-PCS; 2018-05-29)
DX: A41.02 Sepsis due to Methicillin resistant Staphylococcus aureus (principal); L89.324 Pressure ulcer of left buttock, stage 4; L89.314 Pressure ulcer of right buttock, stage 4; L89.154 Pressure ulcer of sacral region, stage 4; E43 Unspecified severe protein-calorie malnutrition; R65.21 Severe sepsis with septic shock; G92 Toxic encephalopathy; J96.01 Acute respiratory failure with hypoxia; J69.0 Pneumonitis due to inhalation of food and vomit; N17.9 Acute kidney failure, unspecified; N39.0 Urinary tract infection, site not specified; E87.0 Hyperosmolality and hypernatremia; E87.4 Mixed disorder of acid-base balance; J90 Pleural effusion, not elsewhere classified; E11.52 Type 2 diabetes mellitus with diabetic peripheral angiopathy with gangrene; M86.8X8 Other osteomyelitis, other site; D63.8 Anemia in other chronic diseases classified elsewhere; E11.65 Type 2 diabetes mellitus with hyperglycemia; I10 Essential (primary) hypertension; E11.649 Type 2 diabetes mellitus with hypoglycemia without coma; E87.5 Hyperkalemia; E87.8 Other disorders of electrolyte and fluid balance, not elsewhere classified; F03.90 Unspecified dementia, unspecified severity, without behavioral disturbance, psychotic disturbance, mood disturbance, and anxiety; G40.909 Epilepsy, unspecified, not intractable, without status epilepticus; H40.9 Unspecified glaucoma; I25.10 Atherosclerotic heart disease of native coronary artery without angina pectoris; J44.9 Chronic obstructive pulmonary disease, unspecified; E11.69 Type 2 diabetes mellitus with other specified complication; M10.9 Gout, unspecified; E87.6 Hypokalemia; N40.0 Benign prostatic hyperplasia without lower urinary tract symptoms; B95.2 Enterococcus as the cause of diseases classified elsewhere; R13.10 Dysphagia, unspecified; Z59.0 Homelessness; Z74.01 Bed confinement status; Z86.73 Personal history of transient ischemic attack (TIA), and cerebral infarction without residual deficits; Z87.01 Personal history of pneumonia (recurrent); Z90.49 Acquired absence of other specified parts of digestive tract; Z93.1 Gastrostomy status; Z95.1 Presence of aortocoronary bypass graft; Z79.82 Long term (current) use of aspirin; Z79.899 Other long term (current) drug therapy; Z68.24 Body mass index [BMI] 24.0-24.9, adult; Z82.49 Family history of ischemic heart disease and other diseases of the circulatory system; Z83.3 Family history of diabetes mellitus; Z90.79 Acquired absence of other genital organ(s)
CPT/HCPCS: 36415; 36569; 36600; 71045; 76770; 76937; 80048; 80076; 80202; 82270; 82375; 82550; 82553; 82805; 82962; 83036; 83605; 83735; 84100; 84134; 84145; 84443; 84484; 85007; 85014; 85018; 85027; 85651; 86140; 86850; 86900; 86920; 87070; 87075; 87077; 87186; 87804; 90732; 93005; 93306; 93970; 96361; 96365; 96366; 96368; 96375; 99291; A6261; C1725; J1170; J1650; J1815; J1953; J1956; J2185; J2270; J2543; J3370; J3480; J3490; J7030; J7040; J7050; J7060; P9016; P9047